=== PATIENT | female | born 1990 | race Caucasian/White ===

== ENCOUNTER 2017-07-21 14:23 | Emergency (ER) | payer OTHER ==
[2017-07-21 14:29] VITALS: BP 97/55; PULSE 63; TEMP 97.8; BMI 24.7
[2017-07-21] MEDS ORDERED: PANTOPRAZOLE SODIUM 40 MG VIAL IVPUSH ONE (16:25)
[2017-07-21] MEDS ORDERED: ONDANSETRON 4 MG/2 ML VIAL IVPUSH ONE (16:25)
[2017-07-21] MEDS ORDERED: SODIUM CHLORIDE 1,000 ML IV STA (16:25)
--- NOTE | 2017-07-21 16:30 | PDOC ---
History of Present Illness - General Chief Complaint: Pain Stated Complaint: PAIN Time Seen by Provider: 07/21/17 16:17 History Source: Patient Exam Limitations: No Limitations - History of Present Illness Travel History: No Initial Comments: 07/21/17 16:27 26 yr female with history of GERD presents with epigastric discomfort with nausea and vomiting for 2 days no fever no diarrhea. no sick contacts at home. Pt took motrin and asa and omeprazole with some relief. Past History - Past Medical History Allergies/Adverse Reactions: Allergies Allergy/AdvReac Type Severity Reaction Status Date / Time No Known Allergies Allergy Verified 07/21/17 14:29 Home Medications: Ambulatory Orders Omeprazole 20 mg PO DAILY 07/21/17 Anemia: No Asthma: No Cancer: No Cardiac Disorders: No CVA: No COPD: No CHF: No DVT: No Diabetes: No HTN: No Seizures: No Thyroid Disease: No - Surgical History Appendectomy: No - Reproductive History (#): 6 Para: 5 - Immunization History Immunization Up to Date: Yes - Suicide/Smoking/Psychosocial Hx Smoking Status: No Smoking History: Never smoked Have you smoked in the past 12 months: No Hx Alcohol Use: No Drug/Substance Use Hx: No Substance Use Type: None Hx Substance Use Treatment: No *Physical Exam - Vital Signs Last Vital Signs Temp Pulse Resp BP Pulse Ox 97.8 F 63 18 97/55 99 07/21/17 14:27 07/21/17 14:27 07/21/17 14:27 07/21/17 14:27 07/21/17 14:27 - Physical Exam General Appearance: Yes: Nourished, Appropriately Dressed HEENT: positive: EOMI, ROGER, TMs Normal, Pharynx Normal Neck: positive: Supple. negative: Tender Respiratory/Chest: positive: Lungs Clear, Normal Breath Sounds Cardiovascular: positive: Regular Rhythm, Regular Rate Gastrointestinal/Abdominal: positive: Normal Bowel Sounds, Tender (epigastric area , neg lower quadrant pain , neg rebound or guarding), Soft Lymphatic: negative: Adenopathy Musculoskeletal: positive: Normal Inspection Extremity: positive: Normal Capillary Refill, Normal Inspection, Normal Range of Motion Integumentary: positive: Normal Color, Dry, Warm Neurologic: positive: employment office clerk II-XII NML intact, Fully Oriented, Alert, Normal Mood/ Affect, Normal Response, Motor Strength 5/5 ED Treatment Course - LABORATORY CBC & Chemistry Diagram: 07/21/17 16:27 07/21/17 16:27 - RADIOLOGY Radiology Studies Ordered: Category Date Time Status ABDOMEN US [US] Stat Ultrasound 07/21/17 16:26 Ordered Medical Decision Making - Medical Decision Making 07/21/17 16:32 cc: epigastric pain nausea and vomiting will r/o gallstones., , reflux no fever no chills 07/21/17 17:40 pt feeling better after the meds no nausea or vomiting now in ER US results pending, labs done 07/21/17 18:06 pt feels better after the medications neg fever neg vomiting in ER feels better *DC/Admit/Observation/Transfer Diagnosis at time of Disposition: Gallstones - Discharge Dispostion Disposition: HOME Condition at time of disposition: Improved - Referrals Referrals: Naa Mckeon [Primary Care Provider] - Anderson Landry MD [Staff Physician] - - Patient Instructions Additional Instructions: please call the surgeon tomorrow to make appointment for follow up this week bland diet as tolerated avoid fatty foods, avoid spicy foods BLAND diet drink pleanty of fluids Return to the ER for any worsening pain or vomiting, fever or severe pain or any other concerns the ultrasound shows you have gallstones, if the stones move they may cause more or worsening pain - Post Discharge Activity
[2017-07-21] MEDS ORDERED: ONDANSETRON 4 MG/2 ML VIAL ONE (16:38)
[2017-07-21] MEDS ORDERED: PANTOPRAZOLE SODIUM 40 MG VIAL ONE (16:38)
[2017-07-21 16:47] LABS: BASO % 1.1 % (0-2.0); EOS % 0.5 % (0-4.5); HEMATOCRIT 40.3 % (32.4-45.2); HEMOGLOBIN 13.8 GM/dL (10.7-15.3); LYMPH % 30.1 % (8-40); MCH 30.9 pg (25.7-33.7); MCHC 34.3 g/dl (32.0-36.0); MEAN CELL VOLUME 90.1 fl (80-96); MEAN PLT VOLUME 8.3 fl (7.5-11.1); MONO % 4.8 % (3.8-10.2); NEUT % 63.5 % (42.8-82.8); PLATELET COUNT 308 K/MM3 (134-434); RBC 4.48 M/mm3 (3.60-5.2); RDW 13.6 % (11.6-15.6); WHITE BLOOD COUNT 5.9 K/mm3 (4.0-10.0)
[2017-07-21 16:50] LABS: HCG,QUALITATIVE URINE NEGATIVE
[2017-07-21 16:51] LABS: URINE APPEARANCE CLEAR; URINE BILIRUBIN NEGATIVE (NEGATIVE); URINE BLOOD NEGATIVE (NEGATIVE); URINE COLOR STRAW; URINE GLUCOSE (UA) NEGATIVE (NEGATIVE); URINE KETONE NEGATIVE (NEGATIVE); URINE LEUK ESTERASE NEGATIVE (NEGATIVE); URINE NITRITE NEGATIVE (NEGATIVE); URINE PROTEIN NEGATIVE (NEGATIVE); URINE UROBILINOGEN NEGATIVE mg/dL (0.2-1.0)
[2017-07-21 17:15] LABS: ALBUMIN 3.8 g/dl (3.4-5.0); ALK PHOS 71 U/L (45-117); AMYLASE 78 U/L (25-115); ANION GAP 6 (8-16); BILIRUBIN,TOTAL 0.5 mg/dL (0.2-1.0); BLOOD UREA NITROGEN 11 mg/dL (7-18); CALCIUM 8.8 mg/dL (8.5-10.1); CHLORIDE 109 mmol/L (98-107); CO2 26 mmol/L (21-32); CREATININE 0.7 mg/dL (0.55-1.02); GLUCOSE,RANDOM 104 mg/dL (74-106); LIPASE 145 U/L (73-393); POTASSIUM 3.9 mmol/L (3.5-5.1); SGOT/AST 22 U/L (15-37); SGPT/ALT 29 U/L (12-78); SODIUM 141 mmol/L (136-145); TOT PROT 7.3 g/dl (6.4-8.2)
== END 2017-07-21 18:31 | disposition home or self-care (01) ==
LOC: JER 14:23
PROC: 3E033GC Introduction of Other Therapeutic Substance into Peripheral Vein, Percutaneous Approach (ICD-10-PCS; principal; 2017-07-21)
PROC: 3E033GC Introduction of Other Therapeutic Substance into Peripheral Vein, Percutaneous Approach (ICD-10-PCS; 2017-07-21)
DX: K80.20 Calculus of gallbladder without cholecystitis without obstruction (principal)
CPT/HCPCS: 36415; 76705-TC; 80053; 81003; 82150; 83690; 84703; 85025; 96374; 96375; 99282-25

== ENCOUNTER 2017-07-22 20:54 | Inpatient (IN) | payer OTHER ==
--- NOTE | 2017-07-22 21:17 | PDOC ---
Rapid Medical Evaluation Time Seen by Provider: 07/22/17 21:16 Medical Evaluation: Allergies Allergy/AdvReac Type Severity Reaction Status Date / Time No Known Allergies Allergy Verified 07/21/17 14:29 07/22/17 21:16 The patient presents with a chief complaint of: Abdominal pain, headache, was seen here yesterday diagnosed with gallstones, pain still persists. I have performed a brief in-person evaluation of this patient. Pertinent physical exam findings: RUQ pain I have ordered the following: [None] The patient will proceed to the ED for further evaluation. 07/22/17 21:18 Discharge Disposition - Diagnosis Abdominal pain - Referrals - Patient Instructions - Post Discharge Activity
[2017-07-22 21:20] VITALS: BMI 24.6
[2017-07-22] MEDS ORDERED: ONDANSETRON 4 MG/2 ML VIAL IVPUSH ONE (21:50)
[2017-07-22] MEDS ORDERED: SODIUM CHLORIDE 0.9% 500 ML INFUS.BAG IV ONE (21:50)
[2017-07-22] MEDS ORDERED: FAMOTIDINE 20 MG/50 ML IVPB 20 MG/50 ML MG IVPB ONE ×2 (21:50→22:18)
--- NOTE | 2017-07-22 22:04 | PDOC ---
Attending Attestation - Resident Resident Name: Castro Denis - ED Attending Attestation I have performed the following: I have examined & evaluated the patient, The case was reviewed & discussed with the resident, I agree w/resident's findings & plan, Exceptions are as noted - HPI HPI: 07/23/17 01:10 The patient is a 26 year old female with no significant past medical history who returns to the ED day of epigastric/RUQ pain, nausesa, multiple episodes of NBNB vomiting, diarrhea. Also reports PO intolerance. States her symptoms began after eating soup. No fever or chills. No chest pain or SOB. She was seen for the same symptoms yesterday, RUQ demonstrated gallstones, and the patient was discharged home to follow up with surgery. She states she returns today for persistence of her symptoms. - Physicial Exam PE: 07/23/17 01:10 GENERAL: Awake, alert, and fully oriented, in no acute distress HEAD: No signs of trauma EYES: PERRLA, EOMI, sclera anicteric, conjunctiva clear ENT: Auricles normal inspection, hearing grossly normal, nares patent, oropharynx clear without exudates. Moist mucosa NECK: Normal ROM, supple, no lymphadenopathy, JVD, or masses LUNGS: Breath sounds equal, clear to auscultation bilaterally. No wheezes, and no crackles HEART: Regular rate and rhythm, normal S1 and S2, no murmurs, rubs or gallops ABDOMEN: Soft, RUQ ttp, normoactive bowel sounds. No guarding, no rebound. No masses EXTREMITIES: Normal range of motion, no edema. No clubbing or cyanosis. No cords, erythema, or tenderness BACK: No midline spinal tenderness in cervical/thoracic/lumbar region NEUROLOGICAL: Normal speech, cranial nerves intact, negative pronator drift, 5/ 5 strength in all 4 extremities, normal sensation to light touch in all 4 extremities, normal cerebellar exam, normal gait, normal reflexes and tone SKIN: Warm, Dry, normal turgor, no rashes or lesions noted. - Medical Decision Making 07/22/17 22:03 26-year-old female diagnosed with gallstones yesterday presents to the emergency department again for epigastric and right upper quadrant abdominal pain. Vitals within normal limits. Exam with positive Ordonez sign and right upper quadrant and epigastric tenderness to palpation. Differential includes but not limited to acute cholecystitis versus biliary colic versus gastroenteritis. Plan: -labs -US -pain control -UA/UPT -reassess 07/23/17 01:11 Labs unremarkable. Urinalysis negative. Ultrasound with gallstones and positive sonographic Ordonez sign. Dr. Mathews from surgery consultation and will see the patient in the morning. Patient intermittently pointing to the right lower quadrant and thus we'll obtain a CT scan to rule out appendicitis. Case discussed with Dr. Callejas, she'll be admitted to [facility] inpatient for further management and evaluation. Case discussed in detail with admitting physician including history, physical exam and ancillary studies. Admitting physician has assumed care for the patient, will follow all pending diagnostics and will complete the evaluation and treatment. Discharge Disposition - Diagnosis Abdominal pain - Discharge Dispostion Condition at time of disposition: Stable Last Admission D/C Date: 12/06/15 Admit: Yes - Referrals Referrals: Naa Mckeon [Primary Care Provider] - - Patient Instructions - Post Discharge Activity
[2017-07-22 22:17] LABS: HEMATOCRIT 39.3 % (32.4-45.2); HEMOGLOBIN 13.5 GM/dL (10.7-15.3); MCHC 34.4 g/dl (32.0-36.0); MEAN CELL VOLUME 90.1 fl (80-96); MEAN PLT VOLUME 7.9 fl (7.5-11.1); PLATELET COUNT 308 K/MM3 (134-434); RBC 4.36 M/mm3 (3.60-5.2); RDW 13.3 % (11.6-15.6); WHITE BLOOD COUNT 6.5 K/mm3 (4.0-10.0)
[2017-07-22] MEDS ORDERED: ONDANSETRON 4 MG/2 ML VIAL ONE (22:18)
[2017-07-22 22:35] LABS: ALBUMIN 3.9 g/dl (3.4-5.0); ANION GAP 6 (8-16); BLOOD UREA NITROGEN 10 mg/dL (7-18); CALCIUM 8.6 mg/dL (8.5-10.1); CHLORIDE 109 mmol/L (98-107); CO2 26 mmol/L (21-32); GLUCOSE,RANDOM 86 mg/dL (74-106); LIPASE 125 U/L (73-393); POTASSIUM 3.9 mmol/L (3.5-5.1); SGPT/ALT 30 U/L (12-78); SODIUM 141 mmol/L (136-145)
[2017-07-22 22:36] LABS: CREATININE 0.7 mg/dL (0.55-1.02); SGOT/AST 24 U/L (15-37)
[2017-07-22 22:38] LABS: ALK PHOS 70 U/L (45-117); BILIRUBIN,TOTAL 0.3 mg/dL (0.2-1.0); TOT PROT 7.3 g/dl (6.4-8.2)
[2017-07-22 22:40] LABS: HCG,QUALITATIVE URINE NEGATIVE
[2017-07-22 22:42] LABS: URINE APPEARANCE CLEAR; URINE BILIRUBIN NEGATIVE (NEGATIVE); URINE BLOOD NEGATIVE (NEGATIVE); URINE COLOR STRAW; URINE GLUCOSE (UA) NEGATIVE (NEGATIVE); URINE KETONE NEGATIVE (NEGATIVE); URINE NITRITE NEGATIVE (NEGATIVE); URINE PROTEIN NEGATIVE (NEGATIVE); URINE UROBILINOGEN NEGATIVE mg/dL (0.2-1.0)
[2017-07-22 22:44] LABS: EPI CELLS RARE /HPF (FEW); URINE BACTERIA RARE /hpf (NONE SEEN); URINE HYALINE CAST 3 /lpf; URINE LEUK ESTERASE 1+ (NEGATIVE)
[2017-07-22 23:32] LABS: PLATELET ESTIMATE ADEQUATE
[2017-07-23] MEDS ORDERED: morphine CARPU-JECT 4 MG/1 ML DISP.SYRIN IVPUSH ONE (00:55)
--- NOTE | 2017-07-23 01:03 | PN ---
Teaching Attending Note Name of Resident: Renate Devries ATTENDING PHYSICIAN STATEMENT I saw and evaluated the patient. I reviewed the resident's note and discussed the case with the resident. I agree with the resident's findings and plan as documented. SUBJECTIVE: 26 F with hx. of GERD presents with abdominal pain. States pain is associated with Non- Bilious, Non-Bloody vomiting. Also, with states associated nausea. Was in ED yesterday with similar symptoms. Denies any chest pain, pressure, or shortness of breath. OBJECTIVE: Physical: VS: Vital Signs Period Temp Pulse Resp BP Sys/Severino Pulse Ox Last 24 Hr 97.9 F 70 18 108/68 100 GEN: NAD, Resting in bed, AA0X3 HEENT: NCAT, PERRL, throat without erythema or exudates CARD: RRR S1, S2 RESP: CTAB ABD: BSx4, + RUQ Tenderness, TTP RLQ EXT: - C/C/E CBCD WBC 6.5 K/mm3 (4.0-10.0) 07/22/17 22:10 RBC 4.36 M/mm3 (3.60-5.2) 07/22/17 22:10 Hgb 13.5 GM/dL (10.7-15.3) 07/22/17 22:10 Hct 39.3 % (32.4-45.2) 07/22/17 22:10 MCV 90.1 fl (80-96) 07/22/17 22:10 MCHC 34.4 g/dl (32.0-36.0) 07/22/17 22:10 RDW 13.3 % (11.6-15.6) 07/22/17 22:10 Plt Count 308 K/MM3 (134-434) 07/22/17 22:10 MPV 7.9 fl (7.5-11.1) 07/22/17 22:10 CMP Sodium 141 mmol/L (136-145) 07/22/17 22:10 Potassium 3.9 mmol/L (3.5-5.1) 07/22/17 22:10 Chloride 109 mmol/L (98-107) H 07/22/17 22:10 Carbon Dioxide 26 mmol/L (21-32) 07/22/17 22:10 Anion Gap 6 (8-16) L 07/22/17 22:10 BUN 10 mg/dL (7-18) 07/22/17 22:10 Creatinine 0.7 mg/dL (0.55-1.02) 07/22/17 22:10 Creat Clearance w eGFR > 60 (>60) 07/22/17 22:10 Random Glucose 86 mg/dL (74-106) 07/22/17 22:10 Calcium 8.6 mg/dL (8.5-10.1) 07/22/17 22:10 Total Bilirubin 0.3 mg/dL (0.2-1.0) D 07/22/17 22:10 AST 24 U/L (15-37) 07/22/17 22:10 ALT 30 U/L (12-78) 07/22/17 22:10 Alkaline Phosphatase 70 U/L (45-117) 07/22/17 22:10 Total Protein 7.3 g/dl (6.4-8.2) 07/22/17 22:10 Albumin 3.9 g/dl (3.4-5.0) 07/22/17 22:10 ABD US: Mutiple gallstones + Ordonez's, Mod. Suspicious for Choleycystitis CT ABD/PELVIS- PENDING ASSESSMENT AND PLAN: 26 F with Hx. of GERD who presents with right upper quadrant abdominal pain, being admitted for acute choleycystitis 1.) Acute Choleycystitis - Cx - IVF - NPO - Coags, CBC, Type & Screen - Ceftriaxone - Sx consult 2.) Dvt ppx - Scds Place in Med-Sx
[2017-07-23] MEDS ORDERED: MORPHINE SULFATE 10 MG/1 ML *VIAL ONE (01:05)
[2017-07-23] MEDS ORDERED: PIPERACILLIN/TAZOB 4.5 GM 4.5 GM in DEXTROSE 5%-WATER - 100 ML IVPB ONE (01:12)
--- NOTE | 2017-07-23 01:39 | HP ---
CHIEF COMPLAINT: Epigastric pain and RUQ pain x 3 days PCP: Naa Xiong HISTORY OF PRESENT ILLNESS: Pt is a 26 yo F with no sig PMHX presenting with a 3 day hx of burning 10/10 epigastric and RUQ pain. The pain radiates to the back and is relieved by leaning forward. There is associated nausea and vomiting of bilous, non bloody recently ingested foods. There is also associated diarrhea, which is non bloody and brown in color, but precipitated by ingestion of food. Pt gave a hx of transient jaundice this am. No history of fever and no change in diet. No hx of similar symptoms in any contact and no recent travel. No dysuria, no increased frequency, no vaginal discharge. Pt however noticed abdominal bloating. Pt had similar symptoms 1 month ago that resolved spontaneously. Pt was treated for similar symptoms in the ED yesterday with omeprazole and zofran, but presented today with worsening pain. Abd US: 07/21/17: Showed cholelithiasis with no acute cholecystitis, with a borderline prominent bileduct up to 6mm with no intrahepatic dilatation. ER course was notable for: (1) Abd US: Acute mild cholecystitis (2) Morphine, Normal saline (3) CBC, CMP (4) Zosyn, famotidine Recent Travel: None PAST MEDICAL HISTORY: None PAST SURGICAL HISTORY: C/section Social History: Smoking:None Alcohol:Social Drugs: None Family History: Allergies No Known Allergies Allergy (Verified 07/22/17 21:20) HOME MEDICATIONS: Home Medications Medication Instructions Recorded Omeprazole 20 mg PO DAILY 07/21/17 Ondansetron [Zofran Odt -] 4 mg SL TID PRN #12 od.tablet 07/21/17 REVIEW OF SYSTEMS CONSTITUTIONAL: Absent: fever, chills, diaphoresis, generalized weakness, malaise, loss of appetite, weight change HEENT: Absent: rhinorrhea, nasal congestion, throat pain, throat swelling, difficulty swallowing, mouth swelling, ear pain, eye pain, visual changes CARDIOVASCULAR: Absent: chest pain, syncope, palpitations, irregular heart rate, lightheadedness , peripheral edema RESPIRATORY: Absent: cough, shortness of breath, dyspnea with exertion, orthopnea, wheezing, stridor, hemoptysis GASTROINTESTINAL: nausea, vomiting,diarrhea,abdominal pain Absent: abdominal distension, constipation, melena, hematochezia GENITOURINARY: Absent: dysuria, frequency, urgency, hesitancy, hematuria, flank pain, genital pain MUSCULOSKELETAL: Absent: myalgia, arthralgia, joint swelling, back pain, neck pain SKIN: Absent: rash, itching, pallor HEMATOLOGIC/IMMUNOLOGIC: Absent: easy bleeding, easy bruising, lymphadenopathy, frequent infections ENDOCRINE: Absent: unexplained weight gain, unexplained weight loss, heat intolerance, cold intolerance NEUROLOGIC: Absent: headache, focal weakness or paresthesias, dizziness, unsteady gait, seizure, mental status changes, bladder or bowel incontinence PSYCHIATRIC: Absent: anxiety, depression, suicidal or homicidal ideation, hallucinations. PHYSICAL EXAMINATION Vital Signs - 24 hr 07/22/17 21:15 Temperature 97.9 F Pulse Rate 70 Respiratory 18 Rate Blood Pressure 108/68 O2 Sat by Pulse 100 Oximetry (%) GENERAL: Awake, alert, and fully oriented, in no acute distress. HEAD: Normal with no signs of trauma. EYES: Pupils equal, round and reactive to light, extraocular movements intact, sclera anicteric, conjunctiva clear. EARS, NOSE, THROAT: oropharynx clear without exudates. Moist mucous membranes. NECK: Normal range of motion, supple LUNGS: Breath sounds equal, clear to auscultation bilaterally. No wheezes, and no crackles. HEART: Regular rate and rhythm, normal S1 and S2 ABDOMEN: Soft, tender RUQ, absent rebound tenderness, positive murphys sign, not distended, normoactive bowel sounds, no guarding, no rebound, no masses. Obturator sign equivocal. MUSCULOSKELETAL: Normal range of motion at all joints. No bony deformities or tenderness. UPPER EXTREMITIES: 2+ pulses, warm, well-perfused. LOWER EXTREMITIES: 2+ pulses, warm, well-perfused. No peripheral edema. NEUROLOGICAL: Cranial nerves II-XII intact. Normal speech. PSYCHIATRIC: Cooperative. Good eye contact. Appropriate mood and affect. Laboratory Results - last 24 hr 07/22/17 07/22/17 07/22/17 22:10 22:10 22:10 WBC 6.5 RBC 4.36 Hgb 13.5 Hct 39.3 MCV 90.1 MCH 31.0 MCHC 34.4 RDW 13.3 Plt Count 308 MPV 7.9 Total Counted 100 Neutrophils % No Result Required. Neutrophils % (Manual) 29.0 L Lymphocytes % No Result Required. Lymphocytes % (Manual) 57.0 H Monocytes % (Manual) 4 Eosinophils % (Manual) 1.0 Differential Comment Man diff performed Platelet Estimate Adequate Platelet Comment PTT (Actin FS) 33.1 Sodium 141 Potassium 3.9 Chloride 109 H Carbon Dioxide 26 Anion Gap 6 L BUN 10 Creatinine 0.7 Creat Clearance w eGFR > 60 Random Glucose 86 Calcium 8.6 Magnesium 2.0 Total Bilirubin 0.3 D AST 24 ALT 30 Alkaline Phosphatase 70 Total Protein 7.3 Albumin 3.9 Lipase 125 Urine Color Urine Appearance Urine pH Ur Specific [place] Urine Protein Urine Glucose (UA) Urine Ketones Urine Blood Urine Nitrite Urine Bilirubin Urine Urobilinogen Ur Leukocyte Esterase Urine WBC (Auto) Urine RBC (Auto) Ur Epithelial Cells Urine Bacteria Hyaline Casts Urine HCG, Qual Blood Type Antibody Screen 07/22/17 07/22/17 22:10 22:27 WBC RBC Hgb Hct MCV MCH MCHC RDW Plt Count MPV Total Counted Neutrophils % Neutrophils % (Manual) Lymphocytes % Lymphocytes % (Manual) Monocytes % (Manual) Eosinophils % (Manual) Differential Comment Platelet Estimate Platelet Comment PTT (Actin FS) Sodium Potassium Chloride Carbon Dioxide Anion Gap BUN Creatinine Creat Clearance w eGFR Random Glucose Calcium Magnesium Total Bilirubin AST ALT Alkaline Phosphatase Total Protein Albumin Lipase Urine Color Straw Urine Appearance Clear Urine pH 8.0 D Ur Specific [place] 1.006 Urine Protein Negative Urine Glucose (UA) Negative Urine Ketones Negative Urine Blood Negative Urine Nitrite Negative Urine Bilirubin Negative Urine Urobilinogen Negative Ur Leukocyte Esterase 1+ H Urine WBC (Auto) 2 Urine RBC (Auto) 1 Ur Epithelial Cells Rare Urine Bacteria Rare Hyaline Casts 3 Urine HCG, Qual Negative Blood Type O POSITIVE Antibody Screen Negative ASSESSMENT/PLAN: 26 yo F with no sig PMHX presenting with a 3 day hx of burning 10/10 epigastric and RUQ pain n/v, diarrhea, with cholecystitis on abd US Acute cholecystitis R/O Acute appendicitis: Iv morphine 2mg Q4H PRN (pain >6) Iv Morphine 1mg Q4HPRN NPO Iv ceftriaxone 1mg daily Iv normal saline @125mg Iv zofran Follow CT abdomen Surgical consult Follow urine culture EKG PT/INR PTT Type and screen FEN: Normal saline Monitor lytes NPO Prophylaxis: Hold heparin- for likely surgery in am SCDs Dispo: Admit Med/surg Visit type - Emergency Visit Emergency Visit: Yes Care time: The patient presented to the Emergency Department on the above date and was hospitalized for further evaluation of their emergent condition. - New Patient This patient is new to me today: Yes Date on this admission: 07/23/17 - Critical Care Critical Care patient: No
[2017-07-23] MEDS ORDERED: SODIUM CHLORIDE 1,000 ML IV SCH (02:15)
[2017-07-23] MEDS ORDERED: ONDANSETRON 4 MG/2 ML VIAL IVPUSH PRN ×2 (02:15→12:10)
[2017-07-23] MEDS ORDERED: MORPHINE SULFATE 10 MG/1 ML *VIAL IVPUSH PRN ×3 (02:16→12:10)
[2017-07-23] MEDS ORDERED: PIPERACILLIN/TAZOB 4.5 GM 4.5 GM/100 ML BAG IVPB ONE (03:17)
[2017-07-23 07:20] LABS: BASO % 0.8 % (0-2.0); EOS % 0.7 % (0-4.5); HEMATOCRIT 36.4 % (32.4-45.2); HEMOGLOBIN 12.7 GM/dL (10.7-15.3); LYMPH % 57.5 % (8-40); MCH 31.3 pg (25.7-33.7); MCHC 34.8 g/dl (32.0-36.0); MEAN CELL VOLUME 89.9 fl (80-96); MONO % 5.9 % (3.8-10.2); NEUT % 35.1 % (42.8-82.8); PLATELET COUNT 258 K/MM3 (134-434); RBC 4.05 M/mm3 (3.60-5.2); RDW 13.6 % (11.6-15.6); WHITE BLOOD COUNT 6.3 K/mm3 (4.0-10.0)
[2017-07-23 07:44] LABS: ALBUMIN 3.2 g/dl (3.4-5.0); ANION GAP 4 (8-16); BLOOD UREA NITROGEN 7 mg/dL (7-18); CALCIUM 7.7 mg/dL (8.5-10.1); CHLORIDE 112 mmol/L (98-107); CO2 26 mmol/L (21-32); GLUCOSE,RANDOM 85 mg/dL (74-106); MAGNESIUM 1.9 mg/dL (1.8-2.4); POTASSIUM 4.1 mmol/L (3.5-5.1); SODIUM 142 mmol/L (136-145)
[2017-07-23 07:48] LABS: ALK PHOS 57 U/L (45-117); BILIRUBIN,TOTAL 0.9 mg/dL (0.2-1.0); CREATININE 0.7 mg/dL (0.55-1.02); PHOSPHOROUS 3.6 mg/dL (2.5-4.9); SGOT/AST 18 U/L (15-37); SGPT/ALT 24 U/L (12-78)
[2017-07-23] MEDS ORDERED: IBUPROFEN 800 MG/8 ML IJ IVPB PRN ×2 (09:58→12:10)
[2017-07-23] MEDS ORDERED: CEFTRIAXONE 1 G/50 ML PREMIX 50 ML IVPB SCH (10:00)
[2017-07-23] MEDS ORDERED: PROPOFOL 20 ML ONE ×2 (10:15)
[2017-07-23] MEDS ORDERED: MIDAZOLAM HCL 2 MG/2 ML SINGLE DOSE VIAL ONE (10:15)
[2017-07-23] MEDS ORDERED: ROCURONIUM BROMIDE 50 MG/5 ML VIAL ONE (10:15)
[2017-07-23] MEDS ORDERED: LIDOCAINE HCL/PF 2% SDV 5ML VIAL ONE (10:15)
--- NOTE | 2017-07-23 10:41 | PN ---
Progress Note (short form) - Note Progress Note: surgery pt seen and examined. full consult dictated. 26f with 3 days of constant ruq pain and inability to eat. was seen in ER two days ago and returned last night. u/s shows multiple gallstones and sonographic rush sign. labs normal but pt has remained in severe pain despite admission and iv abx. ct shows no other pathology. on exam abd is soft with significant ruq tenderness, guarding, and rebound. Plan- clinically acute cholecystitis with > 6 hours of symptoms and localized peritonitis without improvement on iv abx. As patient is failing medical management with move in direction of urgent surgery.
[2017-07-23] MEDS ORDERED: oxyCODONE HCL 5 MG TABLET PO PRN (10:43)
--- NOTE | 2017-07-23 10:50 | OP ---
Operative Note - Note: Operative Date: 07/23/17 Pre-Operative Diagnosis: acute cholecystitis, cholelithiasis Operation: laparoscopic cholecystectomy, lavage Findings: thickened, inflamed gb Post-Operative Diagnosis: Same as Pre-op Surgeon: Otoniel Lazo Anesthesiologist/UTILIZATION MANAGEMENT NURSE: Dariela De Guzman Anesthesia: General Specimens Removed: gb Estimated Blood Loss (mls): 10 Operative Report Dictated: Yes
[2017-07-23] MEDS ORDERED: GLYCOPYRROLATE 0.2 MG/1 ML VIAL ONE (11:14)
[2017-07-23] MEDS ORDERED: DEXAMETHASONE SOD PHOSPHATE 4 MG/1 ML VIAL ONE (11:14)
[2017-07-23] MEDS ORDERED: NEOSTIGMINE METHYLSULFATE 0.5 MG/ML - 10 ML MDV ONE (11:15)
--- NOTE | 2017-07-23 12:14 | PN ---
Progress Note, Physician Chief Complaint: seen and examinedin PACU sleepy no acute distress - Current Medication List Current Medications: Active Medications Enoxaparin Sodium (Lovenox -) 40 mg SQ DAILY [facility] Fentanyl (Sublimaze Injection -) 50 mcg IVPUSH [id number] PRN PRN Reason: PAIN-PACU ORDER X 4 DOSES ONLY CEFTRIAXONE 1 G/50 ML PREMIX (Ceftriaxone 1 Gm-D5w Bag) 50 mls @ 100 mls/hr IVPB DAILY [facility] Last Admin: 07/23/17 09:56 Dose: 100 mls/hr Sodium Chloride (Normal Saline -) 1,000 mls @ 125 mls/hr IV ASDIR [facility] Last Admin: 07/23/17 03:31 Dose: 125 mls/hr Ibuprofen (Caldolor Injection -) 800 mg IVPB Q6H PRN PRN Reason: Pain - Pacu Morphine Sulfate (Morphine Injection -) 2 mg IVPUSH Q4H PRN PRN Reason: PAIN LEVEL 6-10 Last Admin: 07/23/17 08:06 Dose: 2 mg Morphine Sulfate (Morphine Injection -) 1 mg IVPUSH Q4H PRN PRN Reason: PAIN LEVEL 1-5 Ondansetron HCl (Zofran Injection) 4 mg IVPUSH Q4H PRN PRN Reason: NAUSEA AND/OR VOMITING Oxycodone HCl (Roxicodone -) 7.5 mg PO Q4H PRN PRN Reason: PAIN LEVEL 4 - 6 - Objective Vital Signs: Vital Signs Temperature 98.3 F 07/23/17 09:17 Pulse Rate 68 07/23/17 09:17 Respiratory Rate 16 07/23/17 09:17 Blood Pressure 91/56 07/23/17 09:17 O2 Sat by Pulse Oximetry (%) 100 07/22/17 21:15 Constitutional: Yes: Calm Cardiovascular: Yes: Regular Rate and Rhythm, S1, S2 Respiratory: Yes: CTA Bilaterally Gastrointestinal: Yes: Soft, Other (3 scars from laproscopic procedure) Extremities: Yes: Other (scd) Neurological: Yes: Alert, Oriented Labs: CBC, BMP 07/23/17 06:25 07/23/17 06:25 Problem List - Problems (1) S/P cholecystectomy Assessment/Plan: Note: Operative Date: 07/23/17 Pre-Operative Diagnosis: acute cholecystitis, cholelithiasis Operation: laparoscopic cholecystectomy, lavage Findings: thickened, inflamed gb Post-Operative Diagnosis: Same as Pre-op Surgeon: Otoniel Lazo Anesthesiologist/MACHINE HEDDLE CLEANER: Dariela De Guzman Anesthesia: General Specimens Removed: gb Estimated Blood Loss (mls): 10 Operative Report Dictated: Yes now in pacu recovery room Code(s): Z90.49 - ACQUIRED ABSENCE OF OTHER SPECIFIED PARTS OF DIGESTIVE TRACT
--- NOTE | 2017-07-23 12:21 | CONS ---
DATE OF CONSULTATION: 07/23/2017 REASON FOR CONSULTATION: Acute cholecystitis and cholelithiasis. REQUESTING PHYSICIAN: This is an emergency room consultation requested by the emergency room physician. The patient was subsequently admitted to the floor and is being seen and examined there. BRIEF HISTORY: This is a 26-year-old female who approximately 3 days ago developed severe abdominal pain with headache and inability to tolerate food. She came into the [facility] Emergency Room where she had an ultrasound confirming gallstones and a sonographic [place] sign. She was discharged home, but did not improve at home and returned to the emergency room yesterday with worsening of pain. Her labs remained normal, and she was admitted to the hospital for acute cholecystitis and placed on Rocephin antibiotic. Despite antibiotic and being kept n.p.o. overnight, she has shown no improvement and actually feels worse and has been unable to tolerate food. A request was made for a surgical evaluation. PAST MEDICAL HISTORY: Otherwise, negative. PAST SURGICAL HISTORY: Includes section and tonsillectomy, both without complications. SOCIAL HISTORY: Negative for alcohol, negative for tobacco. ALLERGIES: She has no known drug allergies. MEDICATIONS: She takes no medications. FAMILY HISTORY: Noncontributory. REVIEW OF SYSTEMS: General: Denies fatigue or malaise. Cardiac: Denies chest pain or palpitations. Respiratory: Denies shortness of breath or wheeze. Gastrointestinal: As stated in the HPI. Denies diarrhea, denies blood in her stool, denies recent weight loss. She has never had a colonoscopy. Genitourinary: Denies dysuria. Musculoskeletal: Denies joint pain or joint swelling. Psychiatric: Denies depression, anxiety, or hearing voices. PHYSICAL EXAMINATION: General: This is a thin 26-year-old female in no distress. Vital signs: Se is afebrile, and her vital signs are stable. HEENT: Her head is normocephalic. Her sclerae are anicteric. Neck: Supple. Chest: Clear. Abdomen: Soft. She has significant right upper quadrant tenderness with rebound and guarding. She has a well-healed Pfannenstiel incision. She has, perhaps, a small ventral hernia that is not incarcerated. Extremities: Have no edema. REVIEW OF LABORATORY DATA: White blood cell count is 6.3. Her chemistries show normal liver function tests being repeated twice. On review of his imaging, she has a CT scan of her abdomen and pelvis which shows no other pathology. She had an ultrasound done late last night which confirms gallstones with a report of a sonographic [place] sign per the technologist. ASSESSMENT: This is a 26-year-old female with 3 days of constant abdominal pain, nausea, vomiting, and inability to tolerate food, who was admitted with ultrasound findings of acute cholecystitis based on stones and a positive sonographic [place] sign. Despite being kept with nothing by mouth and given Rocephin antibiotics, she has shown no improvement, and her exam is consistent with peritoneal findings localized to the right upper quadrant. A CT scan was also done which ruled out other pathology. Her liver function tests also show no evidence of choledocholithiasis, and her lipase was normal. At this point, clinically, the patient has acute cholecystitis as well as cholelithiasis. Her symptoms have lasted more than 6 hours, and they have not responded to antibiotics, and she has concerning peritoneal findings localized to her right upper quadrant. At this point, she has failure of medical management. I would proceed with urgent cholecystectomy. Risks and benefits of the surgery have been explained to the patient in detail. These are including, but not limited to, the possibility of conversion to open, possibility of common bile duct injury, possibility of cystic duct stump leak, possibility of injury to viscera, possibility of blood loss requiring blood transfusion, possibility of future hernia, possibility of future obstruction, possibility of misdiagnosis, plus a multitude of medical risks including, but not limited to, cardiac, neurologic, pulmonary, and vascular complications, even . The patient understands these risks and is agreeable to surgery. Translation was also available during our conversation. DO ABRAHAN JENNINGS/[id number]
[2017-07-23] MEDS: SODIUM CHLORIDE 1,000 ML IV SCH (12:30)
[2017-07-23] MEDS ORDERED: PROMETHAZINE HCL 25 MG/1 ML VIAL ONE (13:05)
--- NOTE | 2017-07-23 13:37 | OP ---
DATE OF OPERATION: 07/23/2017 PREOPERATIVE DIAGNOSES: Acute cholecystitis, cholelithiasis. POSTOPERATIVE DIAGNOSES: Acute cholecystitis, cholelithiasis. PROCEDURE: Laparoscopic cholecystectomy and lavage. SURGEON: Otoniel Lazo DO STRING WINDING MACHINE OPERATOR: None. ANESTHESIOLOGIST: Dariela De Guzman MD (general) SPECIMEN: Gallbladder. INTRAOPERATIVE FINDINGS: A thick and inflamed gallbladder. BLOOD LOSS: Minimal. COMPLICATIONS: None. DRAINS: None. DISPOSITION: Recovery room in stable condition. BRIEF HISTORY: This is a 26-year-old female who presented to [facility] with signs and symptoms of acute cholecystitis and sonographic evidence to support that. She did not respond to medical management and presents now for surgery. DESCRIPTION OF PROCEDURE: The patient was placed in supine position. After general anesthesia was initiated, the abdomen was prepped and draped in sterile fashion. Next, a transverse incision was made infraumbilical with scalpel used to go through skin and subcutaneous tissue. The fascia was then lifted with Kushal clamp. Veress needle was inserted, and pneumoperitoneum was created. Next, an 11-mm trocar was placed, followed by insertion of a 10-mm 0-degree laparoscope. Next, an additional 11-mm trocar was placed subxiphoid, and two 5-mm trocars were placed in the right upper quadrant. One was the midclavicular line and one was the anterior axillary line. At this point, attention was turned toward the gallbladder. It was pale and edematous, consistent with acute cholecystitis, as well as distended. The fundus lifted cephalad. The infundibulum retracted laterally. The peritoneal was dissected down, exposing a small cystic duct and cystic artery. Both were clipped and divided. The gallbladder was then liberated from the liver bed using electrocautery. Hemostasis was obtained using electrocautery. At this point, the gallbladder was placed in a specimen bag, removed through the infraumbilical trocar site after a significant fascial dilatation, and sent to Pathology, marked as specimen. A vigorous lavage was done, and all return was clear. Trocars were then removed under direct visualization. No bleeding was noted, and pneumoperitoneum was released. At this point, the fascia at the infraumbilical trocar site was then closed with multiple interrupted 0 Vicryl sutures. A small ventral hernia noted above this was not addressed. The four skin incisions were closed with Biosyn, and Dermabond dressing was placed. DO ABRAHAN JENNINGS/[id number] MTDD
[2017-07-23] MEDS ORDERED: PROMETHAZINE HCL 25 MG/1 ML VIAL IVPUSH PRN (15:36)
[2017-07-23] MEDS: MORPHINE SULFATE 10 MG/1 ML *VIAL IVPUSH PRN ×2 (15:49→20:30)
[2017-07-23] MEDS ORDERED: PROMETHAZINE HCL 25 MG/1 ML VIAL IVPB PRN (15:54)
--- NOTE | 2017-07-23 16:40 | EKG ---
Test Reason : Blood Pressure : / mmHG Vent. Rate : 058 BPM Atrial Rate : 058 BPM P-R Int : 136 ms QRS Dur : 072 ms QT Int : 426 ms P-R-T Axes : 075 054 033 degrees QTc Int : 418 ms SINUS BRADYCARDIA OTHERWISE NORMAL ECG WHEN COMPARED WITH ECG OF 16-DEC-2013 01:55, NO SIGNIFICANT CHANGE WAS FOUND Confirmed by MD Chavis Edward ([id number]) on 07/23/2017 4:40:19 PM Referred By: Confirmed By:Alexys Chavis MD
[2017-07-24 08:18] LABS: INR 1.16 (0.82-1.09); PROTHROMBIN TIME (PATIENT) 13.1 SEC (9.98-11.88)
[2017-07-24] MEDS ORDERED: CEFTRIAXONE 1 G/50 ML PREMIX 50 ML IVPB SCH (10:00)
[2017-07-24] MEDS ORDERED: ENOXAPARIN NA (PORCINE) 40 MG/0.4 ML DISP.SYRIN SQ SCH (10:00)
--- NOTE | 2017-07-24 11:45 | PN ---
Progress Note, Physician Chief Complaint: Abdominal pain, Cholecystitis History of Present Illness: S/P cholecystectomy post op day 1 tolerated procedure well NAD, in bed +flatus tolerated regular diet encouraged I/S and walking d/c in AM once cleared by Surgery - Current Medication List Current Medications: Active Medications Enoxaparin Sodium (Lovenox -) 40 mg SQ DAILY [facility] CEFTRIAXONE 1 G/50 ML PREMIX (Ceftriaxone 1 Gm-D5w Bag) 50 mls @ 100 mls/hr IVPB DAILY [facility] Sodium Chloride (Normal Saline -) 1,000 mls @ 125 mls/hr IV ASDIR LISA Last Admin: 07/23/17 12:30 Dose: 200 mls Ibuprofen (Caldolor Injection -) 800 mg IVPB Q6H PRN PRN Reason: Pain - Pacu Stop: 07/24/17 12:09 Last Admin: 07/24/17 10:06 Dose: 800 mg Morphine Sulfate (Morphine Injection -) 2 mg IVPUSH Q4H PRN PRN Reason: PAIN LEVEL 6-10 Last Admin: 07/23/17 20:30 Dose: 2 mg Morphine Sulfate (Morphine Injection -) 1 mg IVPUSH Q4H PRN PRN Reason: PAIN LEVEL 1-5 Ondansetron HCl (Zofran Injection) 4 mg IVPUSH Q4H PRN PRN Reason: NAUSEA AND/OR VOMITING Last Admin: 07/23/17 12:45 Dose: 4 mg Oxycodone HCl (Roxicodone -) 7.5 mg PO Q4H PRN PRN Reason: PAIN LEVEL 4 - 6 Promethazine HCl (Phenergan Injection -) 12.5 mg IVPB Q6H PRN PRN Reason: NAUSEA-FOR RESCUE AFTER 15 MIN - Objective Vital Signs: Vital Signs Temperature 98.6 F 07/24/17 10:40 Pulse Rate 64 07/24/17 10:40 Respiratory Rate 18 07/24/17 10:40 Blood Pressure 98/65 07/24/17 10:40 O2 Sat by Pulse Oximetry (%) 95 07/23/17 20:06 Constitutional: Yes: Well Nourished, No Distress, Calm Cardiovascular: Yes: Regular Rate and Rhythm Respiratory: Yes: Regular Gastrointestinal: Yes: Normal Bowel Sounds, Soft, Tenderness (incisional) Musculoskeletal: Yes: WNL Extremities: Yes: WNL Edema: No Peripheral Pulses WNL: Yes Neurological: Yes: Alert, Oriented Psychiatric: Yes: Alert, Oriented Labs: CBC, BMP 07/23/17 06:25 07/23/17 06:25 INR, PTT INR 1.16 (0.82-1.09) H 07/24/17 07:25 Problem List - Problems (1) Abdominal pain Assessment/Plan: -resolved -incisional tenderness on palpation -d/c morphine -continue oxycodone Code(s): R10.9 - UNSPECIFIED ABDOMINAL PAIN (2) S/P cholecystectomy Code(s): Z90.49 - ACQUIRED ABSENCE OF OTHER SPECIFIED PARTS OF DIGESTIVE TRACT Assessment/Plan see problem list
[2017-07-24] MEDS ORDERED: DOCUSATE SODIUM 100 MG CAPSULE (FP) PO PRN (12:40)
[2017-07-24] MEDS ORDERED: oxyCODONE HCL 5 MG TABLET PO PRN (12:41)
[2017-07-24] MEDS ORDERED: ACETAMINOPHEN 325 MG TABLET (FP) PO PRN (12:41)
[2017-07-24] MEDS: SODIUM CHLORIDE 1,000 ML IV SCH (13:21)
[2017-07-24 13:26] LABS: BASO % 0.7 % (0-2.0); HEMATOCRIT 33.1 % (32.4-45.2); HEMOGLOBIN 11.3 GM/dL (10.7-15.3); LYMPH % 54.2 % (8-40); MONO % 6.4 % (3.8-10.2); NEUT % 37.7 % (42.8-82.8); PLATELET COUNT 228 K/MM3 (134-434); RBC 3.64 M/mm3 (3.60-5.2); RDW 13.5 % (11.6-15.6); WHITE BLOOD COUNT 7.6 K/mm3 (4.0-10.0)
--- NOTE | 2017-07-24 13:59 | PN ---
Progress Note (short form) - Note Progress Note: surgery pt seen and examined. feels well. toelrating diet, voiding, and ambulating afebrile abd- soft, nt, incisions clean Plan- surgically stable for d/c. ok to shower. ok to drive. regular diet. no lifting. 2 weeks off work. f/u in about 2 weeks. [phone]. no abx or narcotics needed.
[2017-07-24 14:13] LABS: CHLORIDE 111 mmol/L (98-107); POTASSIUM 3.5 mmol/L (3.5-5.1); SODIUM 143 mmol/L (136-145)
[2017-07-24 14:33] LABS: ALBUMIN 2.9 g/dl (3.4-5.0); ALK PHOS 52 U/L (45-117); ANION GAP 7 (8-16); BILIRUBIN,TOTAL 0.4 mg/dL (0.2-1.0); BLOOD UREA NITROGEN 6 mg/dL (7-18); CALCIUM 7.5 mg/dL (8.5-10.1); CO2 25 mmol/L (21-32); CREATININE 0.6 mg/dL (0.55-1.02); GLUCOSE,RANDOM 88 mg/dL (74-106); SGOT/AST 49 U/L (15-37); SGPT/ALT 39 U/L (12-78); TOT PROT 5.5 g/dl (6.4-8.2)
[2017-07-24 14:40] VITALS: BP 103/56; PULSE 63; TEMP 99.7
--- NOTE | 2017-07-25 16:25 | PATH ---
Surgical Pathology Report Patient Name: [address] [facility]. Rec. #: [id number] /Age/Gender: 1990 (Age: 26) / F Account: [id number] Location: [address] [place] [address]/[facility] Taken: 07/23/2017 Received: 07/23/2017 Reported: 07/25/2017 Physicians: Monalisa Ernandez M.D. Specimen(s) Received GALLBLADDER Clinical History Cholecystitis, cholelithiasis Final Diagnosis GALLBLADDER, LAPAROSCOPIC CHOLECYSTECTOMY: CHRONIC CHOLECYSTITIS AND CHOLELITHIASIS. Electronically Signed Elysia Sotelo M.D. Gross Description Received in formalin, labeled "gallbladder," is a 8.4 x 2.6 x 2.6 cm. gallbladder with a 0.2 cm. in length portion of cystic duct attached. The outer surface is green and varies from smooth to shaggy. The lumen contains green, tenacious bile as well as multiple yellow, irregular to fragmented choleliths ranging from 0.1-1.0 cm in greatest dimension. The mucosa is green and velvety. The wall of the gallbladder averages 0.1 cm. in thickness. Parking Supervisor sections are submitted in one cassette. 07/24/201707/24/2017
== END 2017-07-24 19:52 | disposition home or self-care (01) | DRG 263 ==
LOC: JER 20:54 → JERBED 07-23 01:39 → UNDOADMIN 07-23 01:42 → JERBED 07-23 01:42 → J6S 07-23 07:28
PROVIDERS: ADMIT Internal Medicine; ATTEND Family Medicine
PROC: 3E1 Administration, Physiological Systems and Anatomical Regions, Irrigation (ICD-10-PCS; 2017-07-23)
PROC: 0FT44ZZ Resection of Gallbladder, Percutaneous Endoscopic Approach (ICD-10-PCS; principal; 2017-07-23 10:30)
DX: K80.00 Calculus of gallbladder with acute cholecystitis without obstruction (principal); K21.9 Gastro-esophageal reflux disease without esophagitis
CPT/HCPCS: 36415; 74177-TC; 76705-TC; 80053; 81003; 81015; 83690; 83735; 84100; 84703; 85025; 85610; 85730; 86850; 86900; 86901; 87086; 88304-TC; 93005; 93010; 94760; 99285-25

== ENCOUNTER 2017-12-26 17:59 | Emergency (ER) | payer OTHER ==
--- NOTE | 2017-12-26 18:52 | PDOC ---
Rapid Medical Evaluation Time Seen by Provider: 12/26/17 18:37 Medical Evaluation: Allergies Allergy/AdvReac Type Severity Reaction Status Date / Time No Known Allergies Allergy Verified 07/22/17 21:20
[2017-12-26 18:53] VITALS: BP 102/48; PULSE 120; TEMP 98.6; BMI 20.1
[2017-12-26] MEDS ORDERED: PANTOPRAZOLE SODIUM 40 MG VIAL IVPB ONE (19:38)
[2017-12-26] MEDS ORDERED: SODIUM CHLORIDE 1,000 ML IV STA (19:38)
[2017-12-26] MEDS ORDERED: FAMOTIDINE 20 MG/50 ML IVPB 20 MG/50 ML MG IVPB ONE ×2 (19:38→20:28)
[2017-12-26] MEDS ORDERED: ONDANSETRON 4 MG/2 ML VIAL IVPUSH ONE (19:38)
[2017-12-26] MEDS ORDERED: ACETAMINOPHEN 1000 MG/100 ML VIAL (NON FORMULARY) IVPB ONE (19:40)
[2017-12-26] MEDS ORDERED: ONDANSETRON 4 MG/2 ML VIAL ONE (19:46)
[2017-12-26] MEDS ORDERED: PANTOPRAZOLE SODIUM 40 MG VIAL ONE (19:46)
[2017-12-26] MEDS ORDERED: ACETAMINOPHEN INJECTION 100 ML IVPB ONE (19:46)
--- NOTE | 2017-12-26 20:09 | PDOC ---
Attending Attestation - HPI HPI: 12/26/17 20:26 The patient is a 27 year old female, with a significant PMH of cholecystectomy in july, who presents to the emergency department with two days of persistent emesis, epigastric pain, subjective fevers and chills. The patient also endorses losing approx. 5 lbs in the past few days. The patient states her LMP was two weeks ago. The patient states her last bowel movement was this morning which she states was normal. The patient denies chest pain, shortness of breath, headache and dizziness. Denies diarrhea, melena, hematochezia and constipation. Denies dysuria, frequency, urgency and hematuria. Allergies: NKA - Physicial Exam PE: 12/26/17 20:27 GENERAL: Well-appearing, well-nourished. No apparent distress. HEENT: Normocephalic, atraumatic. PERRL, EOM intact. CARDIOVASCULAR: (+) Tachycardia. Normal S1, S2. PULMONARY: Clear to auscultation bilaterally. ABDOMEN: (+) Epigastric tenderness. No rebound or guarding. EXTREMITIES: Normal ROM in all four extremities. No gross deformities. SKIN: Warm, dry. No rash NEUROLOGICAL: No focal neurological deficits. <Antonio Bender - Last Filed: 12/26/17 20:26> - Resident Resident Name: Leo Lopez - ED Attending Attestation I have performed the following: I have examined & evaluated the patient, The case was reviewed & discussed with the resident, I agree w/resident's findings & plan, Exceptions are as noted - Medical Decision Making 12/27/17 02:43 Pt treated and released <Delmar Hussein - Last Filed: 12/27/17 02:44> Attestations - Attestations 12/26/17 20:28 Documentation prepared by Antonio Bender, acting as medical radiation dosimetrist for Delmar Hussein DO. <Antonio Bender - Last Filed: 12/26/17 20:26>
[2017-12-26 20:32] LABS: BASO % 0.8 % (0-2.0); EOS % 0.5 % (0-4.5); HEMATOCRIT 39.5 % (32.4-45.2); HEMOGLOBIN 13.8 GM/dL (10.7-15.3); LYMPH % 45.3 % (8-40); MCH 31.3 pg (25.7-33.7); MCHC 34.9 g/dl (32.0-36.0); MEAN CELL VOLUME 89.9 fl (80-96); MEAN PLT VOLUME 7.4 fl (7.5-11.1); MONO % 8.3 % (3.8-10.2); NEUT % 45.1 % (42.8-82.8); PLATELET COUNT 336 K/MM3 (134-434); RDW 13.5 % (11.6-15.6); WHITE BLOOD COUNT 4.8 K/mm3 (4.0-10.0)
--- NOTE | 2017-12-26 20:56 | PDOC ---
History of Present Illness - General Chief Complaint: Nausea/Vomiting Stated Complaint: NAUSEA/VOMITING Time Seen by Provider: 12/26/17 18:37 History Source: Patient Exam Limitations: No Limitations - History of Present Illness Initial Comments: 12/26/17 20:51 Patient is a 27F with history of cholecystectomy here today complainning of 2 days of nausea, vomiting and epigastric pain. Patient is also complaining of associated fever. Patient denies dysuria, lower abdominal pain, chest pain and shortness of breath. Patient states that she has not been able to keep anything down and has lost 5 pounds in the past 2 days. Denies other sick contacts. Denies blood in vomit. LMP two weeks ago. Past History - Past Medical History Allergies/Adverse Reactions: Allergies Allergy/AdvReac Type Severity Reaction Status Date / Time No Known Allergies Allergy Verified 12/26/17 18:49 Home Medications: Ambulatory Orders Omeprazole 20 mg PO DAILY 07/21/17 Ondansetron [Zofran Odt -] 4 mg SL TID PRN #12 od.tablet 07/21/17 Anemia: No Asthma: No Cancer: No Cardiac Disorders: No CVA: No COPD: No CHF: No DVT: No Dementia: No Diabetes: No GI Disorders: No Disorders: No HTN: No Hypercholesterolemia: No Liver Disease: No Seizures: No Thyroid Disease: No Other medical history: Pt denies - Surgical History Abdominal Surgery: No Appendectomy: No Cardiac Surgery: No Cholecystectomy: Yes (07/24/17) Lung Surgery: No Neurologic Surgery: No Orthopedic Surgery: No - Reproductive History (#): 6 Para: 5 - Immunization History Immunization Up to Date: Yes - Suicide/Smoking/Psychosocial Hx Smoking Status: No Smoking History: Never smoked Have you smoked in the past 12 months: No Information on smoking cessation initiated: No Hx Alcohol Use: No Drug/Substance Use Hx: No Substance Use Type: None Hx Substance Use Treatment: No Review of Systems - Review of Systems Comments:: 12/26/17 20:52 GENERAL/CONSTITUTIONAL: +fever +chills. No weakness. HEAD, EYES, EARS, NOSE AND THROAT: No change in vision. No sore throat. CARDIOVASCULAR: No chest pain or shortness of breath RESPIRATORY: No cough, wheezing, or hemoptysis. GASTROINTESTINAL: +nausea, vomiting. No diarrhea or constipation. GENITOURINARY: No dysuria, frequency, or change in urination. MUSCULOSKELETAL: No joint or muscle swelling or pain. No neck or back pain. SKIN: No rash NEUROLOGIC: No headache, vertigo, loss of consciousness, or change in strength/ sensation. ENDOCRINE: No increased thirst. No abnormal weight change HEMATOLOGIC/LYMPHATIC: No anemia, easy bleeding, or history of blood clots. ALLERGIC/IMMUNOLOGIC: No hives or skin allergy. *Physical Exam - Vital Signs Last Vital Signs Temp Pulse Resp BP Pulse Ox 98.6 F 120 H 18 102/48 100 12/26/17 18:50 12/26/17 18:50 12/26/17 18:50 12/26/17 18:50 12/26/17 18:50 - Physical Exam Comments: 12/26/17 20:53 GENERAL: Awake, alert, and fully oriented, in no acute distress HEAD: No signs of trauma, normocephalic, atraumatic EYES: PERRLA, EOMI, sclera anicteric, conjunctiva clear ENT: Auricles normal inspection, hearing grossly normal, nares patent, oropharynx clear without exudates. Dry mucosa NECK: Normal ROM, supple, no lymphadenopathy, JVD, or masses LUNGS: No distress, speaks full sentences, clear to auscultation bilaterally HEART: Regular rate and rhythm, normal S1 and S2, no murmurs, rubs or gallops, peripheral pulses normal and equal bilaterally. ABDOMEN: Soft, +epigastric pain. No guarding, no rebound. No masses EXTREMITIES: Normal inspection, Normal range of motion, no edema. No clubbing or cyanosis. NEUROLOGICAL: Cranial nerves II through XII grossly intact. Normal speech, no focal sensorimotor deficits SKIN: Warm, Dry, normal turgor, no rashes or lesions noted. ED Treatment Course - LABORATORY CBC & Chemistry Diagram: 12/26/17 20:20 12/26/17 08:20 - ADDITIONAL ORDERS Additional order review: 12/26/17 20:20 RBC 4.40 MCV 89.9 MCHC 34.9 RDW 13.5 MPV 7.4 L Neutrophils % 45.1 Lymphocytes % 45.3 H Monocytes % 8.3 Eosinophils % 0.5 Basophils % 0.8 - Medications Given in the ED: ED Medications Discontinued Medications Generic Name Dose Route Start Last Admin Trade Name Freq PRN Reason Stop Dose Admin Acetaminophen 1,000 mg 07/19/18 19:40 12/26/17 20:27 Ofirmev Injection - IVPB 12/26/17 19:41 1,000 mg ONCE ONE Administration Famotidine/Sodium Chloride 20 mg in 50 mls @ 100 mls/hr 12/26/17 19:38 20:28 Pepcid 20 Mg Premixed Ivpb - IVPB 12/26/17 20:07 100 mls/hr ONCE ONE Administration Sodium Chloride 1,000 mls @ 1,000 mls/hr 12/26/17 19:38 12/26/17 20:27 Normal Saline - IV 12/26/17 20:37 1,000 mls/hr ASDIR STA Administration Ondansetron HCl 4 mg 12/26/17 19:38 12/26/17 20:27 Zofran Injection IVPUSH 12/26/17 19:39 4 mg ONCE ONE Administration Pantoprazole Sodium 40 mg 12/26/17 19:38 12/26/17 20:27 Protonix Iv IVPB 12/26/17 19:39 40 mg ONCE ONE Administration Medical Decision Making - Medical Decision Making 12/26/17 20:54 Patient is a 27F with history of cholecystectomy here today complaining of epigastric abdominal pain, nausea, vomiting, fever. Exam notable for tachycardia and epigastric pain. Suspect patient most likely has gastritis. Will evaluate with cbc, cmp, lipase, ua, serum preg to rule out metabolic disorders, , pancreatitis. Will treat with fluids, zofran, tylenol, pepcid, protonix. 12/26/17 21:56 Labs reviewed, cbc and cmp reassuring. Preg negative. UA clear. Patient reassessed, now pain free, asking to go home and tolerating PO. Return precautions given. Will discharge home. Believe patient has gastritis. *DC/Admit/Observation/Transfer Diagnosis at time of Disposition: Gastritis - Discharge Dispostion Condition at time of disposition: Good Decision to Admit order: No - Referrals Referrals: Naa Mckeon [Primary Care Provider] - - Patient Instructions Printed Discharge Instructions: DI for Vomiting -- Adult Additional Instructions: Please return if you have any new, worsening or concerning symptoms. Please follow up with your primary care physician in the next week. - Post Discharge Activity
[2017-12-26 21:02] LABS: ALBUMIN 3.5 g/dl (3.4-5.0); ANION GAP 7 (8-16); BILIRUBIN,TOTAL 0.6 mg/dL (0.2-1.0); BLOOD UREA NITROGEN 7 mg/dL (7-18); CALCIUM 8.9 mg/dL (8.5-10.1); CHLORIDE 108 mmol/L (98-107); CO2 27 mmol/L (21-32); CREATININE 0.7 mg/dL (0.55-1.02); GLUCOSE,RANDOM 84 mg/dL (74-106); POTASSIUM 3.7 mmol/L (3.5-5.1); SGOT/AST 39 U/L (15-37); SGPT/ALT 46 U/L (12-78); SODIUM 142 mmol/L (136-145); TOT PROT 7.3 g/dl (6.4-8.2)
[2017-12-26 21:03] LABS: ALK PHOS 82 U/L (45-117); LIPASE 209 U/L (73-393)
[2017-12-26 21:30] LABS: URINE APPEARANCE CLEAR; URINE BILIRUBIN NEGATIVE (<2.0 mg/dL); URINE COLOR STRAW; URINE GLUCOSE (UA) NEGATIVE (NEGATIVE); URINE KETONE NEGATIVE (NEGATIVE); URINE LEUK ESTERASE NEGATIVE (NEGATIVE); URINE NITRITE NEGATIVE (NEGATIVE); URINE PROTEIN NEGATIVE (NEGATIVE); URINE UROBILINOGEN NEGATIVE mg/dL (0.2-1.0)
== END 2017-12-26 22:04 | disposition home or self-care (01) ==
LOC: JER 17:59
PROC: 3E0337Z Introduction of Electrolytic and Water Balance Substance into Peripheral Vein, Percutaneous Approach (ICD-10-PCS; principal; 2017-12-26)
PROC: 3E033GC Introduction of Other Therapeutic Substance into Peripheral Vein, Percutaneous Approach (ICD-10-PCS; 2017-12-26)
PROC: 3E033GC Introduction of Other Therapeutic Substance into Peripheral Vein, Percutaneous Approach (ICD-10-PCS; 2017-12-26)
PROC: 3E033NZ Introduction of Analgesics, Hypnotics, Sedatives into Peripheral Vein, Percutaneous Approach (ICD-10-PCS; 2017-12-26)
DX: K29.70 Gastritis, unspecified, without bleeding (principal); Z90.49 Acquired absence of other specified parts of digestive tract
CPT/HCPCS: 36415; 80053; 81003; 83690; 84703; 85025; 99283-25; J0131; J7030

== ENCOUNTER 2018-10-07 21:36 | Emergency (ER) | payer OTHER ==
[2018-10-07 21:47] VITALS: BP 98/64; PULSE 64; TEMP 98.4; BMI 20.7
--- NOTE | 2018-10-07 22:13 | PDOC ---
History of Present Illness - General Chief Complaint: Urinary Problem Stated Complaint: VAGINAL PAIN Time Seen by Provider: 10/07/18 21:56 - History of Present Illness Initial Comments: 10/07/18 22:12 27-year-old female without comorbidities presents for evaluation of dysuria 7 days no systemic symptoms. Past History - Past Medical History Allergies/Adverse Reactions: Allergies Allergy/AdvReac Type Severity Reaction Status Date / Time No Known Allergies Allergy Verified 10/07/18 21:45 Anemia: No Asthma: No Cancer: No Cardiac Disorders: No CVA: No COPD: No CHF: No DVT: No Dementia: No Diabetes: No GI Disorders: No Disorders: No HTN: No Hypercholesterolemia: No Liver Disease: No Seizures: No Thyroid Disease: No - Surgical History Abdominal Surgery: No Appendectomy: No Cardiac Surgery: No Cholecystectomy: Yes (07/24/17) Lung Surgery: No Neurologic Surgery: No Orthopedic Surgery: No - Reproductive History (#): 6 Para: 5 - Immunization History Immunization Up to Date: Yes - Suicide/Smoking/Psychosocial Hx Smoking Status: No Smoking History: Never smoked Have you smoked in the past 12 months: No Hx Alcohol Use: No Drug/Substance Use Hx: No Substance Use Type: None Hx Substance Use Treatment: No Review of Systems - Review of Systems Constitutional: No: Fever : Yes: See HPI, Burning, Dysuria, Flank Pain. No: Discharge *Physical Exam - Vital Signs Last Vital Signs Temp Pulse Resp BP Pulse Ox 98.4 F 64 18 98/64 98 10/07/18 21:45 10/07/18 21:45 10/07/18 21:45 10/07/18 21:45 10/07/18 21:45 - Physical Exam Comments: 10/07/18 22:13 HEAD: NC/AT EYES: Conjuntiva clear Ears: Canals and TM's normal NOSE: No d/c THROAT: Moist mucous membrances, oral pharanx clear, uvula midline NECK: Supple without adenopathy CARDIAC: S1 S2 LUNGS: CTA Full and Equal breath sounds ABDOMEN: Soft NT ND B CVAT MS: Full ROM in all joints without edema NEUROLOGIC: No gross sensory or motor deficits, NVID SKIN: Normal color and temperature no lesions or rashes Medical Decision Making - Medical Decision Making 10/07/18 22:59 Possible UTI, pt signed out to overnight [facility] *DC/Admit/Observation/Transfer Diagnosis at time of Disposition: Dysuria - Referrals Referrals: Naa Mckeon [Primary Care Provider] - - Patient Instructions - Post Discharge Activity
[2018-10-07 22:38] LABS: HCG,QUALITATIVE URINE Negative
--- NOTE | 2018-10-07 23:14 | PDOC ---
*Physical Exam - Vital Signs Last Vital Signs Temp Pulse Resp BP Pulse Ox 98.4 F 64 18 98/64 98 10/07/18 21:45 10/07/18 21:45 10/07/18 21:45 10/07/18 21:45 10/07/18 21:45 ED Treatment Course - ADDITIONAL ORDERS Additional order review: Laboratory Results 10/07/18 22:00 Urine HCG, Qual Negative Medical Decision Making - Medical Decision Making 10/07/18 23:14 Patient seen by the advanced practice provider under my direct supervision. Ancillary testing reviewed as necessary. I agree with plan as outlined by the advanced practice provider. *DC/Admit/Observation/Transfer Diagnosis at time of Disposition: Cystitis - Discharge Dispostion Disposition: HOME - Prescriptions Prescriptions: Cefuroxime Axetil [Cefuroxime] 500 mg PO BID #20 tablet - Referrals Referrals: Naa Mckeon [Primary Care Provider] - Call tomorrow - Patient Instructions Printed Discharge Instructions: Urinary Tract Infection Additional Instructions: Drink plenty of fluids. Take cefuroxime as prescribed. Follow-up with your doctor as soon as possible. Return to the emergency room if here vomiting, fever, severe abdominal pain, or any worsening symptoms. - Post Discharge Activity Forms/Work/School Notes: Back to Work
[2018-10-07 23:17] LABS: EPI CELLS 6.2 /HPF (0-5/HPF); PH,URINE 6.5 (5.0-8.0); URINE APPEARANCE CLEAR; URINE BACTERIA 202.4 /hpf (NEGATIVE); URINE BILIRUBIN NEGATIVE (NEGATIVE); URINE CASTS 0 /lpf (0-8); URINE COLOR YELLOW; URINE GLUCOSE (UA) NEGATIVE (NEGATIVE); URINE KETONE NEGATIVE (NEGATIVE); URINE LEUK ESTERASE TRACE (NEGATIVE); URINE NITRITE NEGATIVE (NEGATIVE); URINE PROTEIN NEGATIVE (NEGATIVE); URINE RBC 2 /hpf (0-4); URINE UROBILINOGEN 0.2 mg/dL (0.2-1.0); URINE WBC 5 /hpf (0-5)
--- NOTE | 2018-10-07 23:41 | PDOC ---
*Physical Exam - Vital Signs Last Vital Signs Temp Pulse Resp BP Pulse Ox 98.4 F 64 18 98/64 98 10/07/18 21:45 10/07/18 21:45 10/07/18 21:45 10/07/18 21:45 10/07/18 21:45 ED Treatment Course - ADDITIONAL ORDERS Additional order review: Laboratory Results 10/07/18 22:00 Urine Color Yellow Urine Appearance Clear Urine pH 6.5 Ur Specific [place] 1.012 Urine Protein Negative Urine Glucose (UA) Negative Urine Ketones Negative Urine Blood 3+ H Urine Nitrite Negative Urine Bilirubin Negative Urine Urobilinogen 0.2 Ur Leukocyte Esterase Trace Urine WBC (Auto) 5 Urine RBC (Auto) 2 Urine Casts (Auto) 0 U Epithel Cells (Auto) 6.2 Urine Bacteria (Auto) 202.4 Urine HCG, Qual Negative Medical Decision Making - Medical Decision Making 10/07/18 23:38 UA + leuks and bacteria. will treat *DC/Admit/Observation/Transfer Diagnosis at time of Disposition: Cystitis - Discharge Dispostion Disposition: HOME - Prescriptions Prescriptions: Cefuroxime Axetil [Cefuroxime] 500 mg PO BID #20 tablet - Referrals Referrals: Naa Mckeon [Primary Care Provider] - Call tomorrow - Patient Instructions Printed Discharge Instructions: Urinary Tract Infection Additional Instructions: Drink plenty of fluids. Take cefuroxime as prescribed. Follow-up with your doctor as soon as possible. Return to the emergency room if here vomiting, fever, severe abdominal pain, or any worsening symptoms. - Post Discharge Activity Forms/Work/School Notes: Back to Work
== END 2018-10-08 01:35 | disposition home or self-care (01) ==
LOC: JER 21:36 → JERFT 21:36 → JER 10-08 01:35
DX: N30.00 Acute cystitis without hematuria (principal)
CPT/HCPCS: 81003; 84703; 87086; 99281-25

== ENCOUNTER 2018-10-08 11:53 | Emergency (ER) | payer OTHER ==
[2018-10-08 12:03] VITALS: TEMP 97.8; BMI 20.7
[2018-10-08] MEDS ORDERED: KETOROLAC TROMETHAMINE 30 MG/1 ML VIAL IVPUSH ONE (12:17)
[2018-10-08] MEDS ORDERED: SODIUM CHLORIDE 1,000 ML IV STA ×2 (12:17→18:28)
[2018-10-08] MEDS ORDERED: ONDANSETRON 4 MG/2 ML VIAL IVPUSH ONE (12:17)
[2018-10-08] MEDS ORDERED: CEFTRIAXONE 1 GM in DEXTROSE 5%-WATER - 50 ML IVPB ONE (12:19)
[2018-10-08] MEDS ORDERED: CEFTRIAXONE 1 GM/50 ML BAG ONE (12:43)
[2018-10-08] MEDS ORDERED: KETOROLAC TROMETHAMINE 30 MG/1 ML VIAL ONE (12:43)
[2018-10-08] MEDS ORDERED: ONDANSETRON 4 MG/2 ML VIAL ONE (12:43)
--- NOTE | 2018-10-08 13:10 | PDOC ---
History of Present Illness <Mildred Gautam - Last Filed: 10/08/18 16:02> - General History Source: Patient Exam Limitations: No Limitations - History of Present Illness Travel History: No Initial Comments: 10/08/18 13:09 27-year-old female presents the emergency room for evaluation of left flank pain along area and difficulty urinating. Patient states was seen here yesterday and was prescribed antibiotics for UTI but states has not been of the pickup antibiotics and states pain has worsened along with the hematuria. Patient denies history of renal colic, fever, chills, headache, chest pain or shortness of breath. Timing/Duration: reports: getting worse Quality: reports: moderate, cramping, sharpness Abdominal Pain Onset Location: reports: suprapubic, flank Pain Radiation: reports: back Activities at Onset: reports: none Aggravating Factors: improves with: Voiding Alleviating Factors: improves with: None <Allyson Arboleda - Last Filed: 10/08/18 18:30> - General Chief Complaint: Urinary Problem Stated Complaint: REVISIT / UTI Time Seen by Provider: 10/08/18 12:09 Past History <Mildred Gautam - Last Filed: 10/08/18 16:02> - Travel Traveled outside of the country in the last 30 days: No - Past Medical History Anemia: No Asthma: No Cancer: No Cardiac Disorders: No CVA: No COPD: No CHF: No DVT: No Dementia: No Diabetes: No GI Disorders: No Disorders: No HTN: No Hypercholesterolemia: No Liver Disease: No Seizures: No Thyroid Disease: No - Surgical History Abdominal Surgery: No Appendectomy: No Cardiac Surgery: No Cholecystectomy: Yes (07/24/17) Lung Surgery: No Neurologic Surgery: No Orthopedic Surgery: No - Reproductive History (#): 6 Para: 5 - Immunization History Immunization Up to Date: Yes - Suicide/Smoking/Psychosocial Hx Smoking Status: No Smoking History: Never smoked Have you smoked in the past 12 months: No Hx Alcohol Use: No Drug/Substance Use Hx: No Substance Use Type: None Hx Substance Use Treatment: No Patient Lives Alone: Yes Lives with/in: lives alone <Allyson Arboleda - Last Filed: 10/08/18 18:30> - Past Medical History Allergies/Adverse Reactions: Allergies Allergy/AdvReac Type Severity Reaction Status Date / Time No Known Allergies Allergy Verified 10/08/18 11:59 Home Medications: Ambulatory Orders Cefuroxime Axetil [Cefuroxime] 500 mg PO BID #20 tablet 10/07/18 Review of Systems - Review of Systems Able to Perform ROS?: No Is the patient limited Lao proficient: No Constitutional: No: Symptoms Reported HEENTM: No: Symptoms Reported Respiratory: No: Symptoms reported Cardiac (ROS): No: Symptoms Reported ABD/GI: Yes: Nausea, Abdominal cramping : Yes: Dysuria, Frequency, Flank Pain, Hematuria Musculoskeletal: Yes: Back Pain Integumentary: No: Symptoms Reported Neurological: No: Symptoms reported Endocrine: No: Symptoms Reported Hematologic/Lymphatic: No: Symptoms Reported <Allyson Arboleda - Last Filed: 10/08/18 18:30> *Physical Exam - Vital Signs Last Vital Signs Temp Pulse Resp BP Pulse Ox 97.8 F 75 18 80/67 L 98 10/08/18 12:00 10/08/18 16:01 10/08/18 12:00 10/08/18 16:01 10/08/18 12:00 <Mildred Gautam - Last Filed: 10/08/18 16:02> - Vital Signs Last Vital Signs Temp Pulse Resp BP Pulse Ox 97.8 F 70 18 100/51 L 98 10/08/18 12:00 10/08/18 12:00 10/08/18 12:00 10/08/18 12:00 10/08/18 12:00 - Physical Exam General Appearance: Yes: Nourished, Appropriately Dressed, Mild Distress HEENT: negative: Pale Conjunctivae Neck: positive: Normal Thyroid, Supple Respiratory/Chest: positive: Lungs Clear, Normal Breath Sounds. negative: Respiratory Distress, Accessory Muscle Use Cardiovascular: positive: Regular Rhythm, Regular Rate. negative: Murmur Gastrointestinal/Abdominal: positive: Normal Bowel Sounds, Soft, Tenderness ( mid suprapubic, left lower quadrant and left CVA). negative: Distended, Guarding, Rebound Musculoskeletal: positive: CVA Tenderness (L) Integumentary: positive: Normal Color, Warm, Moist Neurologic: positive: Motor Strength 5/5 (ambulatory) <Allyson Arboleda - Last Filed: 10/08/18 18:30> ED Treatment Course - LABORATORY CBC & Chemistry Diagram: 10/08/18 12:11 10/08/18 12:11 - ADDITIONAL ORDERS Additional order review: Laboratory Results 10/08/18 10/08/18 12:11 12:11 Sodium 139 Potassium 4.1 Chloride 107 Carbon Dioxide 27 Anion Gap 5 L BUN 16 Creatinine 0.6 Creat Clearance w eGFR 120.84 Random Glucose 59 L Calcium 9.0 Total Bilirubin 0.4 AST 27 ALT 30 Alkaline Phosphatase 72 Total Protein 7.1 Albumin 3.6 Urine Color Yellow Urine Appearance Clear Urine pH 6.5 Ur Specific [place] 1.006 L Urine Protein Negative Urine Glucose (UA) Negative Urine Ketones Negative Urine Blood 3+ H Urine Nitrite Negative Urine Bilirubin Negative Urine Urobilinogen 0.2 Ur Leukocyte Esterase Negative Urine WBC (Auto) 2 Urine RBC (Auto) 2 Urine Casts (Auto) 0 U Epithel Cells (Auto) 1.4 Urine Bacteria (Auto) 67.4 Urine HCG, Qual Negative 10/08/18 12:11 RBC 4.31 MCV 91.6 MCHC 34.8 RDW 13.2 MPV 8.0 Neutrophils % 40.1 L Lymphocytes % 48.7 H Monocytes % 9.2 Eosinophils % 0.9 Basophils % 1.1 - Medications Given in the ED: ED Medications Discontinued Medications Generic Name Dose Route Start Last Admin Trade Name Freq PRN Reason Stop Dose Admin Hydromorphone HCl 0.5 mg 10/08/18 15:26 10/08/18 16:00 Dilaudid Injection - IVPUSH 10/08/18 15:27 Not Given ONCE ONE Sodium Chloride 1,000 mls @ 1,000 mls/hr 10/08/18 12:17 10/08/18 13:22 Normal Saline - IV 10/08/18 13:16 1,000 mls/hr ASDIR STA Administration Ceftriaxone Sodium 1 gm/ 50 mls @ 100 mls/hr 10/08/18 12:19 10/08/18 13:22 Dextrose IVPB 10/08/18 12:48 100 mls/hr ONCE ONE Administration Ketorolac Tromethamine 30 mg 10/08/18 12:17 10/08/18 14:08 Toradol Injection - IVPUSH 10/08/18 12:18 30 mg ONCE ONE Administration Ondansetron HCl 4 mg 10/08/18 12:17 10/08/18 13:22 Zofran Injection IVPUSH 10/08/18 12:18 4 mg ONCE ONE Administration <Mildred Gautam - Last Filed: 10/08/18 16:02> - LABORATORY CBC & Chemistry Diagram: 10/08/18 12:11 10/08/18 12:11 - RADIOLOGY Radiology Studies Ordered: Category Date Time Status SPIRAL- RENAL-STONE CT [CT] Stat CT Scan 10/08/18 12:18 Ordered <Allyson Arboleda - Last Filed: 10/08/18 18:30> Medical Decision Making - Medical Decision Making The patient was seen and evaluated in conjunction with midlevel provider under my direct supervision, ancillary studies were reviewed. 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 HPI, workup/dispo as outlined. VS reviewed, wnl. CT neg no acute uro/abdominal pathology analgesia, reassess. 10/08/18 16:02 <Mildred Gautam - Last Filed: 10/08/18 16:02> - Medical Decision Making 10/08/18 13:51 Chief complaint: Worsening hematuria now with back pain and nausea. Patient seen here yesterday and was given cefuroxime for UTI but states was unable to pick it up secondary to worsening symptoms. Patient on exam with left CVA tenderness and mid suprapubic tenderness concerning for renal colic, pyelonephritis, and unlikely abscess Plan: Labs, urine, antiemetics, IV fluids, Toradol and spiral CT ordered 10/08/18 16:29 Laboratory Tests 10/08/18 10/08/18 10/08/18 12:11 12:11 12:11 WBC 4.0 Hgb 13.8 Hct 39.5 MCV 91.6 MCH 31.9 Neutrophils % 40.1 L Lymphocytes % 48.7 H Sodium 139 Potassium 4.1 Chloride 107 Carbon Dioxide 27 Anion Gap 5 L BUN 16 Creatinine 0.6 Random Glucose 59 L Calcium 9.0 Total Bilirubin 0.4 AST 27 ALT 30 Alkaline Phosphatase 72 Albumin 3.6 Ur Specific [place] 1.006 L Urine Blood 3+ H Urine Bilirubin Negative Ur Leukocyte Esterase Negative Urine WBC (Auto) 2 Urine RBC (Auto) 2 Urine Bacteria (Auto) 67.4 Urine HCG, Qual Negative Influenza A (Rapid) Influenza B (Rapid) 10/08/18 14:00 WBC Hgb Hct MCV MCH Neutrophils % Lymphocytes % Sodium Potassium Chloride Carbon Dioxide Anion Gap BUN Creatinine Random Glucose Calcium Total Bilirubin AST ALT Alkaline Phosphatase Albumin Ur Specific [place] Urine Blood Urine Bilirubin Ur Leukocyte Esterase Urine WBC (Auto) Urine RBC (Auto) Urine Bacteria (Auto) Urine HCG, Qual Influenza A (Rapid) Negative Influenza B (Rapid) Negative Pt states feeling better after receiving medication. Pt given OJ x 3 with sugar for glucose of 59. Pt also ordered for 2nd ltr of IVF for 88/ 46. Pt sent room 2 10/08/18 16:37 Pelvic exam done and patient w/ scant amt bright red blood noted in vault. Cervix closed. Patient with left adnexal tenderness. Patient ordered for transvaginal pelvic ultrasound to rule out torsion versus other RESEARCH LABORATORY TECHNICIAN etiology 10/08/18 16:37 10/08/18 17:48 Ultrasound shows no Doppler evidence of torsion. A 2.2 x 1.4 left ovarian cyst follicle is noted without obvious intraluminal debris or hemorrhage. The uterus demonstrates no discrete abnormality. No free intraperitoneal fluid is noted. There is no obvious adnexal pathology. 10/08/18 18:09 Patient states feeling much better and is ambulatory in the ED. Patient given dinner tray and will check fingerstick shortly. Patient will be discharged home with recommendations to continue cefuroxime which she may begin tomorrow since she was given ceftriaxone 1 g here in the ER. Patient's repeat blood pressure 98 /62. Patient's blood pressure was trended on previous visits which seems to be her norm 10/08/18 18:28 Patient requires OP RESEARCH LABORATORY TECHNICIAN referral and will be given copy of her results and imaging awaiting repeat BGM <Allyson Arboleda - Last Filed: 10/08/18 18:30> *DC/Admit/Observation/Transfer <GautamMildrednolan Briones - Last Filed: 10/08/18 16:02> <Allyson Arboleda - Last Filed: 10/08/18 18:30> Diagnosis at time of Disposition: Ovarian cyst - Discharge Dispostion Disposition: HOME Condition at time of disposition: Improved - Referrals Referrals: Naa Mckeon [Primary Care Provider] - rEos Dunaway MD [Staff Physician] - - Patient Instructions Printed Discharge Instructions: DI for Ovarian Cyst Additional Instructions: At this time your lab work urine and imaging have been completed which were essentially negative. I recommended to continue taking your cefuroxime for urinary tract infection and to follow up with RESEARCH LABORATORY TECHNICIAN as discussed. If your symptoms worsen please return to the nearest ER - Post Discharge Activity
[2018-10-08 13:29] LABS: BASO % 1.1 % (0-2.0); EOS % 0.9 % (0-4.5); HEMATOCRIT 39.5 % (32.4-45.2); HEMOGLOBIN 13.8 GM/dL (10.7-15.3); LYMPH % 48.7 % (8-40); MCH 31.9 pg (25.7-33.7); MCHC 34.8 g/dl (32.0-36.0); MEAN CELL VOLUME 91.6 fl (80-96); MONO % 9.2 % (3.8-10.2); NEUT % 40.1 % (42.8-82.8); PLATELET COUNT 337 K/MM3 (134-434); RBC 4.31 M/mm3 (3.60-5.2); RDW 13.2 % (11.6-15.6)
[2018-10-08 13:30] LABS: EPI CELLS 1.4 /HPF (0-5/HPF); PH,URINE 6.5 (5.0-8.0); URINE APPEARANCE CLEAR; URINE BACTERIA 67.4 /hpf (NEGATIVE); URINE BILIRUBIN NEGATIVE (NEGATIVE); URINE CASTS 0 /lpf (0-8); URINE COLOR YELLOW; URINE GLUCOSE (UA) NEGATIVE (NEGATIVE); URINE KETONE NEGATIVE (NEGATIVE); URINE LEUK ESTERASE NEGATIVE (NEGATIVE); URINE NITRITE NEGATIVE (NEGATIVE); URINE PROTEIN NEGATIVE (NEGATIVE); URINE RBC 2 /hpf (0-4); URINE UROBILINOGEN 0.2 mg/dL (0.2-1.0); URINE WBC 2 /hpf (0-5)
[2018-10-08 13:31] LABS: HCG,QUALITATIVE URINE Negative
[2018-10-08 14:32] LABS: ALBUMIN 3.6 g/dl (3.4-5.0); ALK PHOS 72 U/L (45-117); ANION GAP 5 MMOL/L (8-16); BILIRUBIN,TOTAL 0.4 mg/dL (0.2-1); BLOOD UREA NITROGEN 16 mg/dL (7-18); CHLORIDE 107 mmol/L (98-107); CO2 27 mmol/L (21-32); CREATININE 0.6 mg/dL (0.55-1.3); GLUCOSE,RANDOM 59 mg/dL (74-106); POTASSIUM 4.1 mmol/L (3.5-5.1); SGOT/AST 27 U/L (15-37); SGPT/ALT 30 U/L (13-61); SODIUM 139 mmol/L (136-145); TOT PROT 7.1 g/dl (6.4-8.2)
[2018-10-08] MEDS ORDERED: HYDROmorphone HCL CARPU-JECT 2 MG/1 ML DISP.SYRIN IVPUSH ONE (15:26)
[2018-10-08] MEDS ORDERED: HYDROmorphone HCl 2 MG/ML VIAL ONE (15:48)
[2018-10-08] MEDS ORDERED: DEXTROSE 5%-NORMAL SALINE 1,000 ML IV ONE (15:56)
[2018-10-08] MEDS ORDERED: ACETAMINOPHEN INJECTION 100 ML IVPB ONE (16:17)
[2018-10-08] MEDS ORDERED: SODIUM CHLORIDE 0.9% 500 ML INFUS.BAG IV ONE (16:23)
[2018-10-08 18:36] VITALS: BP 98/62; PULSE 78
== END 2018-10-08 18:57 | disposition home or self-care (01) ==
LOC: JER 11:53
PROC: 3E03329 Introduction of Other Anti-infective into Peripheral Vein, Percutaneous Approach (ICD-10-PCS; principal; 2018-10-08)
PROC: 3E0333Z Introduction of Anti-inflammatory into Peripheral Vein, Percutaneous Approach (ICD-10-PCS; 2018-10-08)
PROC: 3E033GC Introduction of Other Therapeutic Substance into Peripheral Vein, Percutaneous Approach (ICD-10-PCS; 2018-10-08)
PROC: 3E0337Z Introduction of Electrolytic and Water Balance Substance into Peripheral Vein, Percutaneous Approach (ICD-10-PCS; 2018-10-08)
DX: N83.209 Unspecified ovarian cyst, unspecified side (principal)
CPT/HCPCS: 36415; 74176-TC; 76830-TC; 76856-TC; 80053; 81003; 82962; 84703; 85025; 87086; 87804; 96361; 96365; 96375; 99283-25; J7030

== ENCOUNTER 2023-06-07 01:30 | Emergency (ER) | payer OTHER ==
[2023-06-07 01:37] VITALS: BP 98/50; PULSE 70; RESP 16; TEMP 98.4; BMI 26.8
[2023-06-07] MEDS ORDERED: SODIUM CHLORIDE 1,000 ML IV STA (01:49)
[2023-06-07] MEDS ORDERED: KETOROLAC TROMETHAMINE 30 MG/1 ML VIAL IVPUSH ONE (01:49)
[2023-06-07] MEDS ORDERED: CYCLOBENZAPRINE HCL 10 MG TABLET (FP) PO ONE (01:50)
[2023-06-07] MEDS ORDERED: CYCLOBENZAPRINE HCL 5 MG TABLET ONE (01:56)
[2023-06-07] MEDS ORDERED: KETOROLAC TROMETHAMINE 30 MG/1 ML VIAL ONE (01:56)
[2023-06-07 02:28] LABS: HEMATOCRIT 37.5 % (32.4-45.2); MCH 31.1 pg (25.7-33.7); MCHC 34.7 g/dl (32.0-36.0); MEAN CELL VOLUME 89.4 fl (80-96); MEAN PLT VOLUME 7.8 fl (7.5-11.1); PLATELET COUNT 328 10^3/uL (134-434); RBC 4.19 M/mm3 (3.60-5.2); RDW 13.4 % (11.6-15.6); WHITE BLOOD COUNT 7.6 K/mm3 (4.0-10.0)
[2023-06-07 02:32] LABS: EPI CELLS >36 /uL (0-25.1); HYALINE CASTS 0 /uL (0-3.1); URINE APPEARANCE CLEAR; URINE BACTERIA 959 /uL (0-1359); URINE BILIRUBIN NEGATIVE (NEGATIVE); URINE COLOR YELLOW; URINE GLUCOSE (UA) NEGATIVE (NEGATIVE); URINE KETONE NEGATIVE (NEGATIVE); URINE LEUK ESTERASE TRACE (NEGATIVE); URINE NITRITE NEGATIVE (NEGATIVE); URINE PROTEIN NEGATIVE (NEGATIVE); URINE RBC 11 /uL (0-23.9); URINE UROBILINOGEN 0.2 mg/dL (0.2-1.0); URINE WBC 56 /uL (0-25.8)
[2023-06-07 03:00] LABS: POTASSIUM 4.1 mmol/L (3.5-5.1)
[2023-06-07 03:03] LABS: ALBUMIN 3.8 g/dl (3.4-5.0); BLOOD UREA NITROGEN 14.7 mg/dL (7-18); CALCIUM 9.2 mg/dL (8.5-10.1)
[2023-06-07 03:06] LABS: CREATININE 0.7 mg/dL (0.55-1.3)
[2023-06-07 03:07] LABS: TOT PROT 6.9 g/dl (6.4-8.2)
[2023-06-07 03:22] LABS: BILIRUBIN,TOTAL 0.2 mg/dL (0.2-1)
== END 2023-06-07 03:55 | disposition home or self-care (01) ==
LOC: FER 01:30
PROC: 3E0333Z Introduction of Anti-inflammatory into Peripheral Vein, Percutaneous Approach (ICD-10-PCS; principal; 2023-06-07)
PROC: 3E0337Z Introduction of Electrolytic and Water Balance Substance into Peripheral Vein, Percutaneous Approach (ICD-10-PCS; 2023-06-07)
DX: R10.9 Unspecified abdominal pain (principal); R30.0 Dysuria; M54.50 Low back pain, unspecified
CPT/HCPCS: 36415; 80053; 81003; 81025; 85025; 87086; 87186; 99284-25

== ENCOUNTER 2023-09-04 22:58 | Emergency (ER) | payer OTHER ==
[2023-09-04] MEDS ORDERED: ACETAMINOPHEN 500 MG TABLET (FP) ONE (23:35)
[2023-09-05] MEDS: ACETAMINOPHEN 325 MG TABLET (FP) PO ONE (00:07)
[2023-09-05 00:19] VITALS: BMI 26.4
[2023-09-05 00:23] LABS: BASO % 0.4 % (0-2.0); HEMATOCRIT 37.8 % (32.4-45.2); HEMOGLOBIN 13.2 GM/dL (10.7-15.3); LYMPH % 40.9 % (8-40); MCH 31.6 pg (25.7-33.7); MCHC 34.9 g/dl (32.0-36.0); MEAN CELL VOLUME 90.6 fl (80-96); MEAN PLT VOLUME 7.7 fl (7.5-11.1); MONO % 5.1 % (3.8-10.2); NEUT % 51.6 % (42.8-82.8); PLATELET COUNT 316 10^3/uL (134-434); RBC 4.17 M/mm3 (3.60-5.2); RDW 13.8 % (11.6-15.6); WHITE BLOOD COUNT 7.8 K/mm3 (4.0-10.0)
[2023-09-05 00:27] LABS: EPI CELLS 15 /uL (0-25.1); HYALINE CASTS 1 /uL (0-3.1); URINE APPEARANCE TURBID; URINE BACTERIA 2339 /uL (0-1359); URINE BILIRUBIN NEGATIVE (NEGATIVE); URINE COLOR ORANGE; URINE GLUCOSE (UA) NEGATIVE (NEGATIVE); URINE KETONE NEGATIVE (NEGATIVE); URINE LEUK ESTERASE 3+ (NEGATIVE); URINE NITRITE NEGATIVE (NEGATIVE); URINE PROTEIN 2+ (NEGATIVE); URINE RBC 7904 /uL (0-23.9); URINE UROBILINOGEN 0.2 mg/dL (0.2-1.0); URINE WBC 4233 /uL (0-25.8)
[2023-09-05 00:44] LABS: POTASSIUM 3.9 mmol/L (3.5-5.1)
[2023-09-05] MEDS ORDERED: morphine SULFATE 4 MG/ML VIAL ONE (00:44)
[2023-09-05 00:47] LABS: ALBUMIN 3.7 g/dl (3.4-5.0); BLOOD UREA NITROGEN 12.2 mg/dL (7-18)
[2023-09-05 00:50] LABS: CREATININE 0.7 mg/dL (0.55-1.3)
[2023-09-05 00:51] LABS: BILIRUBIN,TOTAL 0.3 mg/dL (0.2-1); TOT PROT 6.7 g/dl (6.4-8.2)
[2023-09-05] MEDS: morphine CARPU-JECT 8 MG/1 ML DISP.SYRIN IVPUSH ONE (00:58)
[2023-09-05] MEDS: SODIUM CHLORIDE 1,000 ML IV STA (01:11)
[2023-09-05] MEDS ORDERED: cefTRIAXone SODIUM 1 GM VIAL ONE (01:15)
[2023-09-05] MEDS: CEFTRIAXONE 1,000 MG in DEXTROSE 5%-WATER - 50 ML IVPB ONE (01:26)
[2023-09-05 05:38] VITALS: BP 100/61; PULSE 81; RESP 17; TEMP 98.3
== END 2023-09-05 06:51 | disposition home or self-care (01) ==
LOC: FER 22:58
PROC: 3E03329 Introduction of Other Anti-infective into Peripheral Vein, Percutaneous Approach (ICD-10-PCS; principal; 2023-09-05)
PROC: 3E030NZ Introduction of Analgesics, Hypnotics, Sedatives into Peripheral Vein, Open Approach (ICD-10-PCS; 2023-09-05)
PROC: 3E0337Z Introduction of Electrolytic and Water Balance Substance into Peripheral Vein, Percutaneous Approach (ICD-10-PCS; 2023-09-05)
DX: R10.9 Unspecified abdominal pain (principal); R31.9 Hematuria, unspecified; R30.0 Dysuria; K57.92 Diverticulitis of intestine, part unspecified, without perforation or abscess without bleeding; N39.0 Urinary tract infection, site not specified; X50.0XXA Overexertion from strenuous movement or load, initial encounter
CPT/HCPCS: 36415; 74176-TC; 80053; 81003; 85025; 87086; 87186; 99284-25

== ENCOUNTER 2023-09-08 01:06 | Emergency (ER) | payer OTHER ==
[2023-09-08 01:18] VITALS: BMI 26.4
[2023-09-08] MEDS ORDERED: ACETAMINOPHEN INJECTION 100 ML IVPB ONE (02:25)
[2023-09-08] MEDS ORDERED: ONDANSETRON 4 MG/2 ML VIAL ONE (02:26)
[2023-09-08] MEDS ORDERED: FAMOTIDINE 20 MG/50 ML IVPB 20 MG/50 ML MG IVPB ONE (02:26)
[2023-09-08] MEDS: FAMOTIDINE 20 MG/50 ML IVPB 20 MG/50 ML MG IVPB ONE (02:30)
[2023-09-08] MEDS: ONDANSETRON 4 MG/2 ML VIAL IVPUSH ONE (02:30)
[2023-09-08 02:44] LABS: BASO % 0.5 % (0-2.0); EOS % 1.2 % (0-4.5); HEMATOCRIT 37.3 % (32.4-45.2); LYMPH % 39.5 % (8-40); MCH 31.8 pg (25.7-33.7); MCHC 34.8 g/dl (32.0-36.0); MEAN CELL VOLUME 91.3 fl (80-96); MEAN PLT VOLUME 7.8 fl (7.5-11.1); MONO % 6.2 % (3.8-10.2); NEUT % 52.6 % (42.8-82.8); PLATELET COUNT 327 10^3/uL (134-434); RBC 4.09 M/mm3 (3.60-5.2); RDW 13.6 % (11.6-15.6); WHITE BLOOD COUNT 7.6 K/mm3 (4.0-10.0)
[2023-09-08] MEDS: ACETAMINOPHEN 1000 MG/100 ML BAG IVPB ONE (02:52)
[2023-09-08 03:01] LABS: POTASSIUM 4.9 mmol/L (3.5-5.1)
[2023-09-08 03:03] LABS: CALCIUM 9.3 mg/dL (8.5-10.1)
[2023-09-08 03:04] LABS: ALBUMIN 3.6 g/dl (3.4-5.0); BLOOD UREA NITROGEN 13.1 mg/dL (7-18)
[2023-09-08 03:07] LABS: CREATININE 0.6 mg/dL (0.55-1.3)
[2023-09-08 03:09] LABS: BILIRUBIN,TOTAL 0.3 mg/dL (0.2-1)
[2023-09-08 03:19] LABS: INR 1.07 (0.83-1.09); PROTHROMBIN TIME (PATIENT) 12.4 SEC (9.7-13.0)
[2023-09-08 03:22] LABS: ACTIVATED PTT 34.8 SECONDS (25.2-36.5)
[2023-09-08 04:50] LABS: PH,URINE 6.5 (5.0-8.0); URINE APPEARANCE CLEAR; URINE BILIRUBIN NEGATIVE (NEGATIVE); URINE COLOR YELLOW; URINE GLUCOSE (UA) NEGATIVE (NEGATIVE); URINE KETONE NEGATIVE (NEGATIVE); URINE LEUK ESTERASE NEGATIVE (NEGATIVE); URINE NITRITE NEGATIVE (NEGATIVE); URINE PROTEIN NEGATIVE (NEGATIVE); URINE UROBILINOGEN 0.2 mg/dL (0.2-1.0)
[2023-09-08 06:12] VITALS: BP 90/52; PULSE 69; RESP 16; TEMP 98.1
== END 2023-09-08 06:53 | disposition home or self-care (01) ==
LOC: JER 01:06
PROC: 3E033GC Introduction of Other Therapeutic Substance into Peripheral Vein, Percutaneous Approach (ICD-10-PCS; principal; 2023-09-08)
PROC: 3E030NZ Introduction of Analgesics, Hypnotics, Sedatives into Peripheral Vein, Open Approach (ICD-10-PCS; 2023-09-08)
PROC: 3E030GC Introduction of Other Therapeutic Substance into Peripheral Vein, Open Approach (ICD-10-PCS; 2023-09-08)
DX: R10.12 Left upper quadrant pain (principal); R07.9 Chest pain, unspecified; R06.02 Shortness of breath; R11.0 Nausea; M79.662 Pain in left lower leg; R30.0 Dysuria; R31.9 Hematuria, unspecified; N83.201 Unspecified ovarian cyst, right side; Z20.822 Contact with and (suspected) exposure to COVID-19
CPT/HCPCS: 0241U-QW; 36415; 71046-TC-FY; 74177-TC; 80053; 81003; 83690; 83735; 84484; 84703; 85025; 85379; 85610; 85730; 87086; 93005; 93010; 99285-25; J0131

== ENCOUNTER 2023-10-21 08:22 | Emergency (ER) | payer OTHER ==
[2023-10-21 08:42] VITALS: BP 100/59; PULSE 65; RESP 18; TEMP 98.8; BMI 26.4
[2023-10-21 09:22] LABS: EPI CELLS 6 /uL (0-25.1); HYALINE CASTS 0 /uL (0-3.1); PH,URINE 5.5 (5.0-8.0); URINE APPEARANCE CLEAR; URINE BACTERIA 8 /uL (0-1359); URINE BILIRUBIN NEGATIVE (NEGATIVE); URINE COLOR YELLOW; URINE GLUCOSE (UA) NEGATIVE (NEGATIVE); URINE KETONE NEGATIVE (NEGATIVE); URINE LEUK ESTERASE 1+ (NEGATIVE); URINE NITRITE NEGATIVE (NEGATIVE); URINE PROTEIN NEGATIVE (NEGATIVE); URINE RBC 12 /uL (0-23.9); URINE UROBILINOGEN 0.2 mg/dL (0.2-1.0); URINE WBC 20 /uL (0-25.8)
[2023-10-21] MEDS ORDERED: ACETAMINOPHEN INJECTION 100 ML IVPB ONE (09:53)
[2023-10-21] MEDS: SODIUM CHLORIDE 0.9% 500 ML INFUS.BAG IV ONE (10:14)
[2023-10-21] MEDS: ACETAMINOPHEN 1000 MG/100 ML BAG IVPB ONE (10:14)
[2023-10-21 10:36] LABS: BASO % 1.2 % (0-2.0); EOS % 0.8 % (0-4.5); HEMATOCRIT 40.1 % (32.4-45.2); HEMOGLOBIN 14.3 GM/dL (10.7-15.3); LYMPH % 45.7 % (8-40); MCH 32.4 pg (25.7-33.7); MCHC 35.7 g/dl (32.0-36.0); MEAN CELL VOLUME 90.9 fl (80-96); MEAN PLT VOLUME 7.6 fl (7.5-11.1); MONO % 5.8 % (3.8-10.2); NEUT % 46.5 % (42.8-82.8); PLATELET COUNT 322 10^3/uL (134-434); RBC 4.41 M/mm3 (3.60-5.2); RDW 13.8 % (11.6-15.6); WHITE BLOOD COUNT 4.9 K/mm3 (4.0-10.0)
[2023-10-21 10:53] LABS: POTASSIUM 4.3 mmol/L (3.5-5.1)
[2023-10-21 10:55] LABS: CALCIUM 9.3 mg/dL (8.5-10.1)
[2023-10-21 10:56] LABS: ALBUMIN 3.9 g/dl (3.4-5.0); BLOOD UREA NITROGEN 13.6 mg/dL (7-18)
[2023-10-21 10:59] LABS: CREATININE 0.6 mg/dL (0.55-1.3)
[2023-10-21 11:00] LABS: BILIRUBIN,TOTAL 0.4 mg/dL (0.2-1); TOT PROT 7.5 g/dl (6.4-8.2)
[2023-10-21] MEDS: SULFAMETHOXAZOLE/TRIMETHOPRIM 800MG/160MG D.S. TABLET PO ONE (12:00)
[2023-10-21] MEDS ORDERED: SULFAMETHOXAZOLE/TRIMETHOPRIM 800MG/160MG D.S. TABLET ONE (12:00)
== END 2023-10-21 13:35 | disposition home or self-care (01) ==
LOC: JER 08:22
PROC: 3E033NZ Introduction of Analgesics, Hypnotics, Sedatives into Peripheral Vein, Percutaneous Approach (ICD-10-PCS; principal; 2023-10-21)
DX: R10.30 Lower abdominal pain, unspecified (principal); N12 Tubulo-interstitial nephritis, not specified as acute or chronic
CPT/HCPCS: 36415; 76775-TC; 80053; 81003; 83605; 83690; 84703; 85025; 87040; 87086; 99284-25; J0131